=== PATIENT | female | born 1950 | race Caucasian/White ===

== ENCOUNTER 2016-07-26 05:30 | Inpatient (IN) | payer MEDICARE, OTHER ==
--- NOTE | ~2016-07-26 | CR72 ---
[facility] A Service of [facility] RADIOLOGY TEXT RESULTS PATIENT: HAYES JUDGE LOCATION: [facility] 301-01 : [birth year] UNIT #: [id number] AGE: [address]: Keshav Perla MD SEX: F ORDER DR: [id number] [facility] [address] [place], [place] [address] [id number] I MR#: [id number] Acc #: [id number] NAME: HAYES JUDGE : 1950 SEX: F STUDY DATE/TIME: 07/26/2016 5:32 [facility] RO[facility] 48158 STUDY DESCRIPTION: CR Chest Single View Portable Attending Physician: Keshav Perla M.D. Ordering Physician: Franklyn Mina D.O. Primary Care Physician: Maria Esther Saba A.P.R.N. MEDICAL IMAGING REPORT This report is preliminary unless electronic signature is present EXAM AP portable chest DATE 07/26/2016 HISTORY Shortness of breath and COPD for 3 days, worsening. COMPARISON AP portable chest 05/14/2016 FINDINGS Emphysematous changes are present. No acute airspace disease. Heart size is normal. No pleural effusion or pneumothorax. IMPRESSION Emphysematous changes. No acute chest findings. Dictated by... Elicia Henosn M.D. THIS IS AN ELECTRONICALLY VERIFIED REPORT Elicia Henson M.D. at 07/26/2016 10:26 PM SHEILA/carla TD: 07/26/2016 13:07 JOB #: [id number] MEDICAL IMAGING REPORT COPY
--- NOTE | ~2016-07-26 | EKG ---
PATIENT: HAYES JUDGE UNIT #: [id number] Ventricular Rate: 132 BPM Atrial Rate: 132 BPM P-R Interval: 128 ms QRS Duration: 68 ms Q-T Interval: 296 ms QTC Calculation(Bezet): 438 ms P Fisher: 78 degrees Calculated R Fisher: 49 degrees Calculated T Fisher: 89 degrees Diagnosis Line: Sinus tachycardia Diagnosis Line: Possible Left atrial enlargement Diagnosis Line: Anterior infarct , age undetermined Diagnosis Line: Abnormal ECG Diagnosis Line: When compared with ECG of 23-MAY-2016 06:41, Diagnosis Line: Nonspecific T wave abnormality now evident in Diagnosis Line: Inferior leads Diagnosis Line: Confirmed by IRVIN MARTINEZ MD ([id number]) on Diagnosis Line: 07/26/2016 11:28:23 AM INTERPRETING MD: MICHELLE SALAS
--- NOTE | ~2016-07-26 | DS ---
Unit #: [id number] #: [id number] Patient: HAYES JUDGE [id number] [address] [address] [id number] I MR#: [id number] NAME: HAYES JUDGE ROOM: 301 Age: 65 Sex: F Admission Date: 07/26/2016 : 1950 Discharge Date: 07/31/2016 Attending Physician: Keshav Perla M.D. Primary Care Physician: Maria Esther Saba A.P.R.N. DISCHARGE SUMMARY DISCHARGE DIAGNOSES 1. Acute exacerbation of chronic obstructive pulmonary disease. 2. Chronic respiratory failure on 2 L at home, saturations adequate now on room air daytime. 3. Acute bronchitis with Haemophilus influenzae. 4. Heterozygous alpha-1 antitrypsin disorder. 5. Coronary artery disease. 6. Anxiety and depression. 7. Hypertension with elevated blood pressure, possibly secondary to steroids. 8. Hyperlipidemia. 9. Elevated blood sugars, possibly steroid induced, but may have underlying diabetes as hemoglobin A1c have been elevated in the past. HOME MEDICATIONS Advair one puff twice a day; Spiriva once a day; albuterol as needed; Augmentin 875 mg b.i.d. x5 days; prednisone 40 mg for 5 days, 20 mg for 5 days, and then she will continue her 10 mg a day; Coreg 3.125 mg daily; Norvasc 10 mg daily, note this is an increase in dose; Zestril 10 mg a day; aspirin 81 mg a day. DIET Constant carb. ACTIVITY Doubt the patient will follow activity for now, continue oxygen 24 hours a day, note that ambulatory saturations on 2 L revealed maintenance of adequate saturations at 96%. FOLLOWUP Dr. Perla's nurse practitioner in 1 to 2 weeks, Dr. Perla in 6 to 8 weeks, Dr. Justin Zaldivar as scheduled or 4 to 6 weeks, Maria Esther Saba in 1 to 2 weeks for blood pressure check and evaluation for possible diabetes (please note, hemoglobin A1c during this admission is pending, hemoglobin A1c in 10/2015 was 7.1). DESCRIPTION OF HOSPITALIZATION The patient was admitted to the emergency room with shortness of breath and wheezing. She was treated in usual fashion with steroids, antibiotics, and nebulized bronchodilators. She had green mucopurulent sputum. She was treated with broad-spectrum antibiotics until sputum returned. It was Haemophilus influenzae, Beta-lactamase negative. She slowly improved and on the day of discharge, she was asking for discharge Unit #: [id number] #: [id number] Patient: HAYES JUDGE home. She will be tapered to her usual baseline dose of prednisone. In the office, we will consider adding Zithromax daily in hopes to prevent re-exacerbations. We will also consider formal allergy testing, if this is not complicated by daily prednisone. Her hospitalization was complicated by mild increase in blood pressure, which seems to persist. Therefore, clonidine was added on as needed basis. Her Norvasc was increased to 10 mg a day. She will continue her Zestril and I have suggested a blood pressure check in her primary provider's office. Blood sugars were elevated. She denies any history of diabetes and I have suggested she will be evaluated for possible diabetes as an outpatient in her primary provider's office as well. We will ask nutrition to give her guidance on proper diet, but she has been reluctant to follow that diet in the hospital, so I am pessimistic she will follow it at home. Dictated by... Keshav Perla M.D. RENNY/mónica TD: 08/01/2016 05:30 JOB #: [id number] CC: Justin Zaldivar M.D. DISCHARGE SUMMARY Page 1 of 1 X Keshav Perla MD X DISCHARGE SUMMARY
--- NOTE | ~2016-07-26 | A ---
[facility] Nutrition Therapy DATE: 07/31/16 Patient: HAYES JUDGE Physician: SUNNY Address: [address] Room/Bed: [address] [place] [address], Zip: [place] [address] Admit Date: 07/26/16 Date of : [birth year] Height: 5 0 Weight: 154 70.3 NUTRITIONAL ASSESSMENT: REASON: MD consult for diabetic diet education Admitting Dx: 65 y/o female admitted with COPD exacerbation PMH: COPD on 2L home O2, igmys-7-gillxmcrwnw disorder, CAD, HTN, HLD, depression Anthropometrics: Ht: 60", Wt: 154 lbs, BMI: 29 (overweight) Labs: Glucose 247, POC 228-336, BUN 27, ALT 59, A1C 7.4 Meds: Solu-medrol, Novolog (high SSI), Humulin Assessment: Chart reviewed, events noted. CXR negative. RD provided both verbal and written DM diet education including Type II DM, 1800 calorie 5-day sample meal plan and DM label reading tips handouts. Patient seems to have a pretty good diet at home, states she does not use salt and drinks a lot of water, eats 3 meals per day and watched carb intake. However she is on daily steroids which is likely contributing to her hyperglycemia and high A1C levels. RD discussed possible dietary modifications and losing 5-10% of body weight (7-14 lbs) with the patient who showed good understanding and motivation, stating she does not want to have to take insulin shots at home. Of note, RD previously educated on CC/HH diet on 08/14/14. See recs below. Dx: Altered nutrition related lab values r/t diet, long-term steroid use AEB A1C 7.4, glucose POC 228-336 md/dL, consult for diet education. Intervention: DM education, optimize insulin regimen Monitoring, Evaluation and Goals: 1. Modest weight loss 5-10% of body weight. 2. Understanding and implementation of DM diet. 3. Improvement in glucose and A1C. Recommendations: 1. Continue CC diet. RD provided both verbal and written diabetes education with contact number. Patient showed good understanding and motivation. 2. Optimize insulin regimen to promote adequate blood glucose control. Will fully assess at lenght of stay, please consult with any further questions/needs [facility] Nutrition Therapy DATE: 07/31/16 Patient: HAYES JUDGE Physician: SUNNY Address: [address] Room/Bed: [address] [place] [address], Zip: [place] [address] Admit Date: 07/26/16 Date of : [birth year] Height: 5 0 Weight: 154 70.3 Respectfully, Sherice Jordan RD, LD Food and Nutritional Services [facility] cc: client file
--- NOTE | ~2016-07-26 | CO ---
Unit #: [id number] #: [id number] Patient: HAYES JUDGE [id number] [address] [place], [place] [address] [id number] I MR#: [id number] NAME: HAYES JUDGE ROOM: 26049 Age: 65 Sex: F Admission Date: 07/26/2016 : 1950 Attending Physician: Keshav Perla M.D. Primary Care Physician: Maria Esther Saba A.P.R.N. Consultation Date: 07/26/2016 CONSULTATION REPORT CHIEF COMPLAINT Shortness of breath. HISTORY OF PRESENT ILLNESS This 65-year-old female with severe emphysema and chronic respiratory failure was feeling her normal self until approximately 2 days ago. She had increased wheezing, increased mucopurulent sputum that was green. She presented to the emergency room and, despite treatment, was still short of breath and required hospitalization. She had fairly intense wheezing but denied fever, chest pain or hemoptysis. PAST MEDICAL HISTORY 1. Chronic hypercapnic hypoxemic respiratory failure, on 2 liters. 2. Heterozygous byumu-9-jsctomfgnfw disorder. 3. Coronary artery disease. 4. Depression. 5. Hypertension. 6. Hyperlipidemia. MEDICATIONS AT HOME She takes Advair b.i.d., Spiriva once a day, albuterol as needed. She, also, is on Celexa, Zestril, Coreg, aspirin, Norvasc and Requip. ALLERGIES No known medical allergies. SOCIAL HISTORY She does not smoke, but she has been around intermittent secondhand smoke. 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 FAMILY HISTORY She is unaware of any definite familial lung disease. REVIEW OF SYSTEMS As above and no chest pain, palpitations, abdominal pain, melena, hematochezia. No swallowing difficulties. No hematuria, dysuria, focal weakness, paresthesias, leg pain, swelling, fever or chills. PHYSICAL EXAMINATION GENERAL: Examination reveals a patient who is in no acute distress. VITAL SIGNS: Afebrile. Pulse 103, respiratory rate 19, blood pressure 120/76. She is 5' tall, 156 pounds, BMI 30. HEENT: Pupils equal, round and reactive to light. Sclerae anicteric. Head atraumatic. Mucous membranes moist. Unit #: [id number] #: [id number] Patient: HAYES JUDGE NECK: Supple. No supraclavicular or cervical adenopathy appreciated. CHEST: Tight expiratory wheeze throughout all lung balbunea. No consolidation. CARDIAC: Examination reveals a regular rate and rhythm. No pathologic murmur, rub or gallop. ABDOMEN: Abdomen is soft, nontender. No hepatomegaly or rebound. EXTREMITIES: Extremities reveal no clubbing, cyanosis or edema. No calf tenderness. SKIN: Warm and dry without rash or diaphoresis. NEUROLOGIC: Grossly intact. No focal muscular or sensory deficits. DIAGNOSTIC STUDIES LABORATORY EXAMINATION: BUN is 19, creatinine 1, glucose mildly elevated at 178. BNP 46. Lactic acid 1.2. INR normal. Cardiac enzymes normal. White blood cell count 23.8, hemoglobin 15.6, platelet count 323. Do not see a urinalysis performed. Blood cultures performed and are pending. Sputum in the past was haemophilus influenza. IMAGING: Chest x-ray - No acute infiltrates. CARDIOVASCULAR: EKG - Sinus rhythm. Possible P pulmonale. IMPRESSION 1. Acute exacerbation of COPD. 2. Acute bronchitis. 3. Chronic respiratory failure. 4. Heterozygous alpha-1 phenotype. 5. Coronary artery disease. 6. Leukocytosis. No obvious pneumonia. 7. Hyperlipidemia, etc. PLAN Admission to the hospital. Antibiotics. Oxygen to maintain adequate saturations. Steroids, etc. I will check a urine for UA and C and S to evaluate her leukocytosis. Her leukocytosis may be stress related. Room air oxygenation needs will need to be checked at discharge per the patient. She got a letter from Medicare requiring recertification. Thank you very much for allowing me to participate in the care of this patient. Dictated by... Keshav Perla M.D. RENNY/bennett TD: 07/26/2016 12:20 JOB #: [id number] Unit #: [id number] #: [id number] Patient: HAYES JUDGE CONSULTATION REPORT X Keshav Perla MD X CONSULTATION REPORT
[2016-07-26 05:30] LABS: POC - CKMB 2.5 ng/mL (0.0-7.9); POC - TROPONIN <0.05 ng/mL (<=0.05)
[~2016-07-26 05:30] MED LIST: ACETAMINOPHEN PO; ACETAMINOPHEN650 M1 PO; ADVAIR 100-501 EACH IH; ADVAIR 250-501 EACH IH; ADVAIR 500-501 EACH IH; ADVAIR 500-501 EACH INH; ADVAIR 5001 DISK W/1 IH; ADVAIR 5001 DISK W/1 INH; ADVAIR 5001 DISK W/2 IH; ALB/IPRATROPIUM/1 E1 INH; ALBUTEROL 0.5ML INH; ALBUTEROL MININEB NEB; ALBUTEROL SULFATE INH; ALBUTEROL0.83 MG/ML IH; ALBUTEROL0.83 MG/ML NEB; ALBUTEROL17 GM INH; ALLERGY RELIEF10 M1 PO; ALLERGY RELIEF10 M2 PO; AMBIEN PO; ASPIRIN81 M1 PO; ASPIRIN81 M2 PO; ASPIRIN81 MG PO; ATROVENT NEB; AZITHROMYCIN250 MG PO; AZITHROMYCIN500 MG PO; BACTROBAN22 GM TP; BAYER CHEWABLE81 MG PO; BENZONATATE PO; BP PILL PO; CARDIZEM CD300 MG PO; CARVEDILOL3.125 MG PO; CELEXA PO; CELEXA10 MG PO; CELEXA20 M1 PO; CELEXA20 MG PO; CITALOPRAM HBR10 MG PO; CLARITIN10 M1 PO; COLACE PO; COMBIVENT MININEB IH; COMBIVENT MININEB NEB; COMBIVENT U/D3 M1 INH; COREG3.125 MG PO; DALIRESP500 MCG DOB; DALIRESP500 MCG PO; DELTASONE20 MG PO; DOXYCYCLINE HY100 M3 PO; DOXYCYCLINE PO; DUONEB 2.5-0.5 M3 ML NEB; ECOTRIN81 M1 PO; EFFIENT10 MG PO; FAMOTIDINE PO; FAMOTIDINE20 M1 PO; FLAX SEED OIL1000 M1 PO; FLAX SEED OIL1000 M2 PO; GABAPENTIN300 M2 PO; GLUCOTROL PO; HUMIBID-LA600 MG PO; HYDROCHLOROTHIA25 MG PO; IPRATR-ALBUTEROL3 ML IH; IPRATROPIUM BROM5 GM MC; IPRATROPIUM BROMIDE INH; IPRATROPIUM0.2 MG/ML NEB; K-DUR10 MEQ PO; KEFLEX500 M1 PO; LASIX PO; LASIX20 MG PO; LEVAQUIN PO; LEVAQUIN250 MG PO; LEVAQUIN750 M1 PO; LEVAQUIN750 MG PO; LISINOPRIL10 MG PO; LISINOPRIL5 MG PO; METHIMAZOLE10 MG PO; METHIMAZOLE5 MG PO; MILK OF MAGNESIA PO; MUCINEX PO; MUCINEX SINUS-1 EAC1 PO; NEURONTIN300 MG PO; NICODERM C1 PATCH .1 TD; NICOTINE TRANSD14 MG EXT; NICOTINE TRANSD21 MG EXT; NORVASC PO; PAIN RELIEF650 MG PO; PAIN RELIEVER325 M1 PO; PEPCID AC20 M2 PO; PEPCID PO; PLAVIX PO; POTASSIUM CHLO10 ME1 PO; POTASSIUM CITRA5 MEQ PO; POTASSIUM99 M1 PO; PRAVACHOL20 MG PO; PRAVASTATIN SOD20 MG PO; PREDNISONE INH; PREDNISONE PO; PREDNISONE10 MG PO; PREDNISONE10 MG/DOSE PO; PRINIVIL10 MG PO; PROAIR HFA8.5 GM INH; PROVENTIL INH0.5 ML INH; PROVENTIL INH0.5 ML NEB; PROVENTIL17 GM IH; PROVENTIL4 MG IH; QVAR7.3 G1 IH; QVAR7.3 G1 INH; REQUIP1 MG PO; SINGULAIR PO; SPIRIVA18 MCG INH; SYMBICORT INH; TAPAZOLE5 MG PO; TYLENOL PO; TYLENOL325 M1 PO; UROCIT-K5 MEQ PO; VENTOLIN5 MG/ML IH; VIBRAMYCIN100 M1 DOB; VIBRAMYCIN100 M1 PO; Z-PACK PO; ZESTRIL10 M1 PO; ZITHROMAX PO; ZITHROMAX1 G/PKT PO; ZOCOR PO
[2016-07-26 05:34] LABS: INR 0.9; PARTIAL THROMBOPLASTIN TIME 22.3 SECONDS (23.5-31.3); PROTHROMBIN TIME (PATIENT) 9.8 SECONDS (9.6-11.5)
[2016-07-26 05:48] LABS: BASOPHIL# 0.1 X10e3 (0-0.3); BASOPHIL% 0.4 % (0-2.5); EOSINOPHIL# 0.2 X10e3 (0-0.7); EOSINOPHIL% 0.7 % (0.0-7.0); HEMATOCRIT 47.7 % (35.0-45.0); HEMOGLOBIN 15.6 gm/dL (12.0-16.0); LYMPHOCYTE# 3.6 X10e3 (1.0-3.5); LYMPHOCYTE% 14.9 % (17.0-45.0); MEAN CELL VOLUME 92.9 FL (83-96); MEAN CORPUSCULAR HEMOGLOBIN 30.3 PG (28-34); MEAN CORPUSCULAR HGB CONC 32.6 g/dL (30-36); MEAN PLATELET VOLUME 8.2 FL (6.5-11.5); MONOCYTE# 1.2 X10e3 (0-1.0); MONOCYTE% 5.2 % (3.0-12.0); NEUTROPHIL# 18.7 X10e3 (1.5-7.1); NEUTROPHIL% 78.8 % (40-75); PLATELET COUNT 323 X10e3 (140-420); RED BLOOD COUNT 5.13 X10e (3.90-5.30); WHITE BLOOD COUNT 23.8 X10e3 (4.0-10.5)
[2016-07-26 06:03] LABS: ALBUMIN SERUM 4.1 g/dL (3.5-5.0); BILIRUBIN, DIRECT 0.1 mg/dL (0.0-0.2); BILIRUBIN,INDIRECT 0.5 mg/dL (0.0-0.9); BILIRUBIN,TOTAL 0.6 mg/dL (0.2-2.0); CALCIUM SERUM 9.3 mg/dL (8.4-10.2); GLOM FILT RATE Estimated 58.8 mL/min (>60); POTASSIUM 3.9 mmol/L (3.5-5.1); PROTEIN TOTAL SERUM 6.8 g/dL (6.0-8.3)
[2016-07-26 06:17] LABS: DIFF IND YES
[2016-07-26 06:39] LABS: POC - CKMB 3.9 ng/mL (0.0-7.9); POC - TROPONIN <0.05 ng/mL (<=0.05)
[2016-07-26 07:08] LABS: PLATELET ESTIMATE NORMAL (NORMAL); RBC NORMAL YES
[2016-07-27 09:50] LABS: URINE APPEARANCE CLEAR; URINE BILIRUBIN NEG (NEG); URINE BLOOD NEG (NEG); URINE COLOR YELLOW; URINE GLUCOSE 250 MG/DL (NEG); URINE KETONE NEG (NEG); URINE LEUKOCYTE ESTERASE NEG (NEG); URINE NITRATE NEG (NEG); URINE PH 6.5 (5-8); URINE PROTEIN 1+ (NEG); URINE SPECIFIC GRAVITY 1.026 (1.003-1.035); URINE UROBILINOGEN 0.2 MG/DL (NEG)
[2016-07-27 09:51] LABS: URINE BACTERIA AUWI NEG (NEGATIVE); URINE SQUAMOUS EPITHELIAL CELL OCC /[HPF]; UWBCS1 AUWI 0-2 (0-5)
[2016-07-27 10:00] LABS: URBCS1 AUWI 0-2 /[HPF] (0-2)
[2016-07-28 05:59] LABS: HEMATOCRIT 44.5 % (35.0-45.0); HEMOGLOBIN 14.4 gm/dL (12.0-16.0); MEAN CELL VOLUME 93.1 FL (83-96); MEAN CORPUSCULAR HEMOGLOBIN 30.1 PG (28-34); MEAN CORPUSCULAR HGB CONC 32.4 g/dL (30-36); MEAN PLATELET VOLUME 8.6 FL (6.5-11.5); RED BLOOD COUNT 4.79 X10e (3.90-5.30); RED CELL DISTRIBUTION WIDTH 14.6 % (11.0-15.5); WHITE BLOOD COUNT 20.6 X10e3 (4.0-10.5)
[2016-07-28 06:37] LABS: BLOOD UREA NITROGEN 25 mg/dL (9-23); BUN/CREATININE RATIO 27.77; CARBON DIOXIDE 28 mmol/L (22-31); CHLORIDE 99 mmol/L (100-111); CREATININE SERUM 0.9 mg/dL (0.6-1.4); GLOM FILT RATE Estimated ABOVE60 mL/min (>60); GLUCOSE FASTING 249 mg/dL (70-110); POTASSIUM 4.3 mmol/L (3.5-5.1); SODIUM 134 mmol/L (135-145)
[2016-07-29 06:11] LABS: BASOPHIL% 0.1 % (0-2.5); HEMATOCRIT 43.9 % (35.0-45.0); HEMOGLOBIN 14.3 gm/dL (12.0-16.0); LYMPHOCYTE# 0.4 X10e3 (1.0-3.5); LYMPHOCYTE% 2.7 % (17.0-45.0); MEAN CELL VOLUME 92.7 FL (83-96); MEAN CORPUSCULAR HEMOGLOBIN 30.1 PG (28-34); MEAN CORPUSCULAR HGB CONC 32.5 g/dL (30-36); MEAN PLATELET VOLUME 8.7 FL (6.5-11.5); MONOCYTE# 0.3 X10e3 (0-1.0); MONOCYTE% 1.8 % (3.0-12.0); NEUTROPHIL# 15.7 X10e3 (1.5-7.1); NEUTROPHIL% 95.4 % (40-75); PLATELET COUNT 295 X10e3 (140-420); RED BLOOD COUNT 4.73 X10e (3.90-5.30); RED CELL DISTRIBUTION WIDTH 14.5 % (11.0-15.5); WHITE BLOOD COUNT 16.4 X10e3 (4.0-10.5)
[2016-07-29 06:12] LABS: DIFF IND NO
[2016-07-29 06:48] LABS: ALBUMIN SERUM 3.2 g/dL (3.5-5.0); ALKALINE PHOSPHATASE 99 U/L (32-92); ALT (SGPT) 59 U/L (10-40); AST (SGOT) 30 U/L (10-42); BILIRUBIN,TOTAL 0.4 mg/dL (0.2-2.0); BLOOD UREA NITROGEN 27 mg/dL (9-23); BUN/CREATININE RATIO 33.75; CALCIUM SERUM 9.1 mg/dL (8.4-10.2); CARBON DIOXIDE 28 mmol/L (22-31); CHLORIDE 104 mmol/L (100-111); CREATININE SERUM 0.8 mg/dL (0.6-1.4); GLOM FILT RATE Estimated ABOVE60 mL/min (>60); GLUCOSE FASTING 247 mg/dL (70-110); POTASSIUM 4.3 mmol/L (3.5-5.1); SODIUM 141 mmol/L (135-145)
[2016-07-31 06:01] LABS: HEMATOCRIT 44.9 % (35.0-45.0); HEMOGLOBIN 14.7 gm/dL (12.0-16.0); MEAN CELL VOLUME 92.5 FL (83-96); MEAN CORPUSCULAR HEMOGLOBIN 30.3 PG (28-34); MEAN CORPUSCULAR HGB CONC 32.7 g/dL (30-36); MEAN PLATELET VOLUME 8.6 FL (6.5-11.5); RED BLOOD COUNT 4.85 X10e (3.90-5.30); RED CELL DISTRIBUTION WIDTH 14.8 % (11.0-15.5); WHITE BLOOD COUNT 14.3 X10e3 (4.0-10.5)
[2016-07-31] MEDS ORDERED: AUGMENTIN875 MG PO (14:31)
[2016-07-31] MEDS ORDERED: NORVASC10 MG PO (14:34)
[2016-07-31] MEDS ORDERED: ACETAMINOPHEN PO (15:08)
== END 2016-07-31 18:00 | disposition home or self-care (01) | DRG 191 ==
LOC: CED 05:30 → CEDOF 08:25 → C3A PCU 14:19
PROVIDERS: Emergency Medicine; Internal Medicine
PROC: 05H333Z Insertion of Infusion Device into Right Innominate Vein, Percutaneous Approach (ICD-10-PCS; principal; 2016-07-26)
PROC: B54MZZA Ultrasonography of Right Upper Extremity Veins, Guidance (ICD-10-PCS; 2016-07-26)
DX: J44.1 Chronic obstructive pulmonary disease with (acute) exacerbation (principal); J96.10 Chronic respiratory failure, unspecified whether with hypoxia or hypercapnia; E88.01 Alpha-1-antitrypsin deficiency; I10 Essential (primary) hypertension; J20.1 Acute bronchitis due to Hemophilus influenzae; J44.0 Chronic obstructive pulmonary disease with (acute) lower respiratory infection; I25.10 Atherosclerotic heart disease of native coronary artery without angina pectoris; F41.9 Anxiety disorder, unspecified; F32.9 Major depressive disorder, single episode, unspecified; E78.5 Hyperlipidemia, unspecified; R73.9 Hyperglycemia, unspecified; T38.0X5A Adverse effect of glucocorticoids and synthetic analogues, initial encounter; Z77.22 Contact with and (suspected) exposure to environmental tobacco smoke (acute) (chronic)
CPT/HCPCS: 36415; 71010; 80048; 80053; 80076; 81003; 82308; 82553; 82947; 83036; 83605; 83880; 84484; 85025; 85027; 85610; 85730; 87040; 87070; 87077; 87086; 87205; 93005; 94640; 94760; 96360; 99285; J0456; J0696; J1815; J2543; J2920; J3370

== ENCOUNTER 2016-08-06 05:19 | Inpatient (IN) | payer MEDICARE, OTHER ==
--- NOTE | ~2016-08-06 | CO ---
Unit #: [id number] #: [id number] Patient: HAYES JUDGE [id number] [address] [address] [id number] I MR#: [id number] NAME: HAYES JUDGE ROOM: [facility] Age: 65 Sex: F Admission Date: 08/06/2016 : 1950 Attending Physician: Keshav Perla M.D. Primary Care Physician: Maria Esther Saba A.P.R.N. Consultation Date: 08/08/2016 CONSULTATION REPORT REASON FOR CONSULTATION Dyspnea and chest pain. HISTORY OF PRESENT ILLNESS The patient is a 65-year-old female who has been seen by [facility] in the past for chest pain. She has had multiple hospital admissions for ppxiw-me-lilzbbe COPD exacerbations. The patient has had a cardiac cath on April 16, 2013 in which she had a stent to the RCA placed and in June of 2005, I believe, she had a 2D echocardiogram done which revealed an EF of 60%, mild MR, RVSP mildly elevated at 30% to 40% mmHg. Additional past medical history includes end-stage COPD on chronic O2, hypertension, hyperlipidemia, heterozygous alpha-1 antitrypsin disorder, reformed tobaccoism and anxiety and depression. The patient was recently discharged from this facility on July 31, 2016 for exacerbation of COPD and acute bronchitis with haemophilus influenza. Otherwise patient reports that since her discharge she has been becoming more short of breath. She re-presented to the emergency department with complaints of shortness of breath, cough fevers and body aches. She is found to be positive for influenza A and was admitted to the hospital. At that time her point of care troponin was less than 0.05 and her EKG showed sinus tachycardia with a rate of 115 beats per minute. The patient reports that she has chest pressure in the middle of her chest that does not radiate to her arms, neck, back or jaw. She denies any diaphoresis. She states that this pain is intermittent and is associated with coughing and taking a deep breath. PAST MEDICAL HISTORY 1. Cardiac catheterization on April 16, 2013 showed distal RCA with concentric 80% narrowing and 30% to 40% stenosis at the junction of the proximal 2/3rd and distal 1/3rd. She underwent stenting of the RCA. PDA branch and PLV branch normal. Left main normal. LAD mild plaquing in its proximal third with the distal 2/3rd of the vessel being normal. Circumflex mild plaquing in its proximal third. 2. Two-D echocardiogram from June 2015 shows an EF of 60% and RSVP of 30 to 40 mmHg. 3. Hypertension. 4. Hyperlipidemia. 5. Hyperthyroidism. 6. COPD/emphysema. 7. Chronic hypoxic hypercarbic respiratory failure on chronic O2. 8. Restless leg syndrome. Unit #: [id number] #: [id number] Patient: HAYES JUDGE 9. Anxiety. 10. Depression. PAST SURGICAL HISTORY 1. Appendectomy. 2. Cholecystectomy. 3. Hysterectomy. 4. Cardiac cath with stent. ALLERGIES No known allergies. HOME MEDICATIONS 1. Celexa 20 mg p.o. q.h.s. 2. Requip 1 mg p.o. q.h.s. 3. Advair 500/50 one puff inhalation b.i.d. 4. Lisinopril 10 mg p.o. daily. 5. Proventil one amp inhalation q.4 h. p.r.n. shortness of breath. 6. Spiriva 17 mcg one inhalation daily. 7. Norvasc 5 mg p.o. daily. 8. Aspirin 81 mg p.o. daily. 9. Acetaminophen 650 mg p.o. q.6 h. FAMILY HISTORY Patient states that her mother had a CVA and from sepsis in her early 70s. SOCIAL HISTORY Patent denies tobacco abuse and reports that she quit several years ago however she does have a history of greater than 30 years of smoking. She denies alcohol or illicit drug abuse. She denies any exposure to TB. She reports that she did have the flu and pneumonia vaccines. She reports that she lives with a roommate. REVIEW OF SYSTEMS A 10-point review of systems has been done and is considered otherwise negative except as indicated in the HPI. PHYSICAL EXAMINATION GENERAL: Patient is awake, alert, in no acute distress. VITAL SIGNS: Her vital signs are temperature 97.7, heart rate 107, respirations 21, blood pressure 146/81. She is oxygenating 98%. HEENT: Head is atraumatic and normocephalic. Pupils equal, round and reactive. Extraocular movements are intact. No discharged from ears or nares. NECK: Neck is supple. Trachea is midline. CHEST: Lungs (1) wheezing and rhonchi. CARDIOVASCULAR: S1 and S2. She is tachycardic. No murmurs, gallops or rubs appreciated. ABDOMEN: Soft, nontender, nondistended. Bowel sounds are positive in all four quadrants. SKIN: Appears to be warm, dry and intact without unusual rashes or lesions. She does have some scratches on her legs. EXTREMITIES: No clubbing or cyanosis. Patient has mild bilateral lower extremity edema. NEUROLOGIC: Patient is alert and oriented x3 to 4. She is pleasant and conversant. No focal deficits. Cranial nerves II-XII appear to be intact. Unit #: [id number] #: [id number] Patient: HAYES JUDGE DIAGNOSTIC STUDIES CARDIOVASCULAR: EKG shows normal sinus rhythm. LABORATORY: Point of care troponin was less than 0.05 on admission. IMAGING: Chest x-ray shows atelectasis or infiltrate in the left lower lobe and atelectasis in the right lower lobe. ASSESSMENT 1. Influenza A. 2. Acute chronic obstructive pulmonary disease exacerbation with shortness of air. 3. Tyklw-lf-jzmciip hypoxic hypercarbic respiratory failure on chronic oxygen. 4. Chest pain associated with cough and dyspnea. 5. Coronary artery disease with a history of stent to the right coronary artery in 2012. 6. Hypertension. 7. Hyperlipidemia. 8. Hyperglycemia. 9. Leukocytosis, possibly secondary to flu or steroids. PLAN I will order a 2D echocardiogram or have one placed on the chart if one has been done recently. Will trend cardiac enzymes and track an EKG. Will check BNP, magnesium, lipid panel and TSH in the morning. The patient's chest pain is associated with cough and dyspnea. Will monitor. I will have Dr. Kidd (2) . Will continue the patient in aspirin 81 mg p.o. daily. No beta blockers secondary to respiratory status. Her Norvasc has been held per the admitting team. Will give patient Lasix 40 mg IV x1 now. Dictated by... Berta Soto A.P.R.N. for Ashvin Kidd M.D. AM/cf TD: 08/08/2016 15:53 JOB #: [id number] CONSULTATION REPORT Page 1 of 1 X Berta Soto APRN CONSULTATION REPORT
--- NOTE | ~2016-08-06 | CR72 ---
[facility] A Service of [facility] RADIOLOGY TEXT RESULTS PATIENT: HAYES JUDGE LOCATION: [place] [address] : [birth year] UNIT #: [id number] AGE: [address]: Keshav Perla MD SEX: F ORDER DR: [id number] [facility] [address] [place], [place] [address] [id number] I MR#: [id number] Acc #: [id number] NAME: HAYES JUDGE : 1950 SEX: F STUDY DATE/TIME: 08/06/2016 15:42 UNIT: [facility] ROOM: [facility] STUDY DESCRIPTION: CR Chest Single View Portable Attending Physician: Keshav Perla M.D. Ordering Physician: Linda Fry D.O. Primary Care Physician: Maria Esther Saba A.P.R.N. MEDICAL IMAGING REPORT This report is preliminary unless electronic signature is present EXAM Portable chest HISTORY Shortness of air for 2 days. FINDINGS Mild patchy probable subsegmental atelectasis or infiltrate in the retrocardiac left lower lobe and minimal atelectasis in the right base are new compared to earlier today. Mild hyperinflation of both lungs. Cardiac and mediastinal contours are normal. Dictated by... Jose G Henriquez M.D. THIS IS AN ELECTRONICALLY VERIFIED REPORT Jose G Henriquez M.D. at 08/07/2016 3:04 PM SUDARSHAN/delia TD: 08/07/2016 09:12 JOB #: [id number] MEDICAL IMAGING REPORT Page 1 of 1 COPY
--- NOTE | ~2016-08-06 | HP ---
Unit #: [id number] #: [id number] Patient: HAYES JUDGE [id number] [address] [address] [id number] I MR#: [id number] NAME: HAYES JUDGE ROOM: 55 Age: 65 Sex: F Admission Date: 08/06/2016 : 1950 Attending Physician: Keshav Perla M.D. Primary Care Physician: Maria Esther Saba A.P.R.N. HISTORY AND PHYSICAL CHIEF COMPLAINT Shortness of breath. HISTORY OF PRESENT ILLNESS This is a 65-year-old female with a known history of severe COPD who was just in the hospital for an acute exacerbation. She re-presented to the ER with shortness of breath, cough, fevers, and body aches. She was found to be positive for influenza A and was admitted to the hospital. Currently, patient is doing a little bit better. She was on BiPAP through the night but is off now and doing much better. PAST MEDICAL HISTORY 1. Chronic obstructive pulmonary disease, on chronic O2. 2. Heterozygous for alpha-1 antitrypsin disorder. 3. Coronary artery disease. 4. Hypertension. 5. Depression. 6. Dyslipidemia. 7. Restless leg syndrome. 8. Appendectomy. 9. Cholecystectomy. 10. Hysterectomy. 11. Percutaneous coronary intervention with stents. PAST SURGICAL HISTORY None. ALLERGIES None. MEDICATIONS 1. Celexa. 2. Requip. 3. Advair. 4. Lisinopril. 5. Proventil. 6. Spiriva. 7. Norvasc. 8. Aspirin. 9. Tylenol. SOCIAL HISTORY The patient denies tobacco abuse right now. She quit several years ago. She had a greater than 50 pack-year history. She denies alcohol or Unit #: [id number] #: [id number] Patient: HAYES JUDGE illicit drug use. She denies any exposure to TB. She states she has had the flu and the pneumonia vaccines. FAMILY HISTORY Noncontributory. REVIEW OF SYSTEMS A complete review of systems was performed and pertinent positives are included in the Chief Complaint. PHYSICAL EXAMINATION VITAL SIGNS: Stable. She is afebrile. GENERAL: Patient is alert and oriented x3 and appears in no acute distress. HEENT: Eyes PERRLA. Extraocular muscles intact. Sclerae are clear. Nose patent and symmetric without rhinitis. Throat without erythema or exudate. Tongue size normal. NECK: Without JVD, carotid bruit, or thyromegaly. LYMPH NOTES: Without submandibular, anterior, cervical, or supraclavicular adenopathy. HEART: Regular rate and rhythm without murmur appreciated. No thrills palpated. LUNGS: Markedly diminished bilaterally with faint expiratory wheezes throughout. There is no egophony or dullness to percussion. No use of accessory muscles at this time. ABDOMEN: Soft and nontender. EXTREMITIES: Without clubbing, cyanosis, or edema. SKIN: Warm, dry, and intact. DIAGNOSTIC STUDIES LABORATORY: Reviewed. IMAGING: Chest x-ray none. IMPRESSION 1. Acute exacerbation of chronic obstructive pulmonary disease secondary to influenza A. 2. Alpha-1 antitrypsin carrier. 3. Coronary artery disease. 4. Hypertension. 5. Dyslipidemia. 6. Restless leg syndrome. 7. Depression. 8. Leukocytosis secondary to steroids and flu. RECOMMENDATIONS 1. Will start Tamiflu. 2. Bronchodilators. 3. Steroids. 4. Insulin. 5. Proton pump inhibitor. Dictated by Emmanuelle Russell Unit #: [id number] #: [id number] Patient: HAYES JUDGE TD: 08/06/2016 19:19 JOB #: [id number] HISTORY AND PHYSICAL Page 1 of 1 X Linda Fry DO X HISTORY AND PHYSICAL
--- NOTE | ~2016-08-06 | EKG ---
PATIENT: HAYES JUDGE UNIT #: [id number] Ventricular Rate: 115 BPM Atrial Rate: 115 BPM P-R Interval: 126 ms QRS Duration: 72 ms Q-T Interval: 334 ms QTC Calculation(Bezet): 462 ms P Grifton: 77 degrees Calculated R Grifton: 61 degrees Calculated T Grifton: 56 degrees Diagnosis Line: Sinus tachycardia Diagnosis Line: Right atrial enlargement Diagnosis Line: Nonspecific T wave abnormality Diagnosis Line: Abnormal ECG Diagnosis Line: When compared with ECG of 26-JUL-2016 05:07, Diagnosis Line: No significant change was found Diagnosis Line: Confirmed by ELOISA GUDINO MD ([id number]) on 08/07/2016 Diagnosis Line: 10:57:52 PM INTERPRETING MD: TERESE SALAS
--- NOTE | ~2016-08-06 | EKG ---
PATIENT: HAYES JUDGE UNIT #: [id number] Ventricular Rate: 106 BPM Atrial Rate: 106 BPM P-R Interval: 122 ms QRS Duration: 68 ms Q-T Interval: 310 ms QTC Calculation(Bezet): 411 ms P [place]: 81 degrees Calculated R [place]: 52 degrees Calculated T [place]: -87 degrees Diagnosis Line: Sinus tachycardia Diagnosis Line: Nonspecific T wave abnormality Diagnosis Line: Abnormal ECG Diagnosis Line: When compared with ECG of 06-AUG-2016 05:49, Diagnosis Line: No significant change was found Diagnosis Line: Confirmed by ELOISA GUDINO MD ([id number]) on 08/09/2016 Diagnosis Line: 9:15:41 PM INTERPRETING MD: TERESE SALAS
--- NOTE | ~2016-08-06 | CR72 ---
[facility] A Service of [facility] RADIOLOGY TEXT RESULTS PATIENT: HAYES JUDGE LOCATION: [place] [address] : 48 UNIT #: [id number] AGE: [address]: Keshav Perla MD SEX: F ORDER DR: [id number] [facility] [address] [facility]. [place], [place] [address] [id number] I MR#: [id number] #: [id number] NAME: HAYES JUDGE : 1950 SEX: F STUDY DATE/TIME: 08/06/2016 5:29 UNIT: [facility] ROOM: [facility] STUDY DESCRIPTION: CR Chest Single View Portable Attending Physician: Keshav Perla M.D. Ordering Physician: Therese Myers M.D. Primary Care Physician: Maria Esther Saba A.P.R.N. MEDICAL IMAGING REPORT This report is preliminary unless electronic signature is present EXAM Frontal chest 08/06/2016 INDICATIONS Shortness of air in a 65-year-old female, cough, pneumonia, symptoms began yesterday. TECHNIQUE Frontal chest COMPARISON 07/26/2016 FINDINGS Cardiac silhouette is within normal limits for technique. The vascularity is unremarkable. There is some probable atelectasis or mild scarring in the lower lung zones bilaterally but no dense consolidation is present. No distinct effusion. Mild eventration of both hemidiaphragms. IMPRESSION Probable faint atelectasis or scarring in the lung bases. Otherwise negative frontal chest. No significant change Dictated by... Clay Granados M.D. THIS IS AN ELECTRONICALLY VERIFIED REPORT Clay Granados M.D. at 08/06/2016 9:57 PM ZENIA/claudia TD: 08/06/2016 15:36 JOB #: [id number] [facility] A Service of [facility] RADIOLOGY TEXT RESULTS PATIENT: HAYES JUDGE LOCATION: [place] [address] : 48 UNIT #: [id number] AGE: [address]: Keshav Perla MD SEX: F ORDER DR: MEDICAL IMAGING REPORT Page 1 of 1 COPY
--- NOTE | ~2016-08-06 | EKG ---
PATIENT: HAYES JUDGE UNIT #: [id number] Ventricular Rate: 106 BPM Atrial Rate: 106 BPM P-R Interval: 122 ms QRS Duration: 68 ms Q-T Interval: 310 ms QTC Calculation(Bezet): 411 ms P [place]: 81 degrees Calculated R [place]: 52 degrees Calculated T [place]: -87 degrees Diagnosis Line: Sinus tachycardia Diagnosis Line: Right atrial enlargement Nonspecific ST Diagnosis Line: abnormality Diagnosis Line: Abnormal ECG Diagnosis Line: When compared with ECG of 06-AUG-2016 05:49, Diagnosis Line: No significant change was found Diagnosis Line: Reconfirmed by ELOISA GUDINO MD ([id number]) on Diagnosis Line: 08/09/2016 9:16:08 PM INTERPRETING MD: TERESE SALAS
--- NOTE | ~2016-08-06 | DS ---
Unit #: [id number] #: [id number] Patient: HAYES JUDGE [id number] [address] [place], [place] [address] [id number] I MR#: [id number] NAME: HAYES JUDGE ROOM: 55 Age: 65 Sex: F Admission Date: 08/06/2016 : 1950 Discharge Date: 08/14/2016 Attending Physician: Keshav Perla M.D. Primary Care Physician: Maria Esther Saba A.P.R.N. DISCHARGE SUMMARY DISCHARGE DIAGNOSES 1. Chronic obstructive pulmonary disease with exacerbation. 2. Influenza A status post Tamiflu. 3. Methicillin-resistant Staphylococcus aureus tracheal bronchitis. 4. Chronic respiratory failure, on 2 L. 5. Acute respiratory failure, now requiring 5 L, will evaluate need for correct litre flow at home. 6. Coronary artery disease, status post percutaneous coronary intervention in the past. 7. Heterozygous alpha-1 antitrypsin disorder. 8. Hypertension. 9. Hyperlipidemia. 10. Anxiety and depression. 11. Some degree of steroid-induced hyperglycemia with elevated hemoglobin A1c consider diabetes. DISCHARGE MEDICATIONS Prednisone 40 mg tapered to her chronic home dose, Bactrim DS one tablet b.i.d. for 4 more days, hydrochlorothiazide 12.5 mg a day, Lipitor 40 mg at night, Requip 1 mg at bedtime, Norvasc 5 mg a day, Zestril 20 mg b.i.d., aspirin 81 mg a day, albuterol mini nebs q.i.d. p.r.n., Advair 500/50 one puff b.i.d., Tylenol p.r.n., Spiriva 1 capsule inhaled daily, Celexa 20 mg at bedtime. FOLLOWUP 1. Follow up with Ms. Saba in 1 to 2 weeks for possible diabetes management of other medical problems. 2. Follow up with Dr. Zaldivar as scheduled. 3. Follow up in our office with our nurse practitioner in 1 to 2 weeks in my office and with me after that. ACTIVITY Oxygen 24 hours a day. DIET As tolerated, constant carb suggested. She has been educated on that in the past. PROCEDURES PERFORMED Echocardiogram and ejection fraction 55% to 60%. Mild degree of diastolic dysfunction. No evidence of pulmonary hypertension. Unit #: [id number] #: [id number] Patient: HAYES JUDGE DESCRIPTION OF HOSPITALIZATION The patient was admitted through the emergency room by my partner, Dr. Fry. She was flu screen positive, treated with Tamiflu. She was treated in the usual fashion for tracheal bronchitis and COPD exacerbation. In the past, she had Haemophilus influenzae in her sputum and that was treated however she failed to improve. Sputum culture at that time, revealed MRSA. She initially was treated with vancomycin transition to Bactrim. She was very weak initially, but overtime she became much stronger and was able to perform all activities of daily living. She was eating well at the time of discharge. She actually had been stable on oral steroids and oral antibiotics over the weekend and on Sunday, she was doing well and was discharged in markedly improved condition. She was still on 5 L. Room air oxygenation will be checked, it to document O2 need. She tells me insurance is requiring this. She then will be titrated to the oxygen level needed to maintain adequate saturations. Overall discharged in markedly improved condition. Dictated by... Romana Rivers/mónica TD: 08/14/2016 23:18 JOB #: [id number] CC: Maria Esther Saba A.P.R.N. DISCHARGE SUMMARY Page 1 of 1 X Keshav Perla MD X DISCHARGE SUMMARY
--- NOTE | ~2016-08-06 | US85 ---
[facility] A Service of [facility] RADIOLOGY TEXT RESULTS PATIENT: HAYES JUDGE LOCATION: [facility] 557-01 : 48 UNIT #: [id number] AGE: [address]: Keshav Perla MD SEX: F ORDER DR: [id number] [facility] [address] [facility]. [place], [place] [address] [id number] I MR#: [id number] #: [id number] NAME: HAYES JUDGE : 1950 SEX: F STUDY DATE/TIME: 08/11/2016 12:50 UNIT: B ROOM: [facility] STUDY DESCRIPTION: LE Veins Unilat or Ltd Stdy Attending Physician: Keshav Perla M.D. Ordering Physician: Keshav Perla M.D. Primary Care Physician: Maria Esther Saba A.P.R.N. MEDICAL IMAGING REPORT This report is preliminary unless electronic signature is present EXAM Left upper extremity venous Doppler INDICATION Left upper extremity swelling for 1 day. FINDINGS Grayscale color Doppler and spectral Doppler waveform analysis was performed through the left upper extremity. FINDINGS The patient's left internal jugular, subclavian, axillary, brachial and basilic veins are all patent and compressible. This patient is noted to have some occlusive thrombus within the left cephalic vein at the level of the antecubital fossa. There also appears to be some edema in the left arm. IMPRESSION The study is positive for SVT involving the left cephalic vein at the antecubital fossa. No DVT is seen Dictated by... Svitlana Love M.D. THIS IS AN ELECTRONICALLY VERIFIED REPORT Svitlana Love M.D. at 08/13/2016 12:25 PM AFF/ea TD: 08/11/2016 21:52 [facility] A Service of [facility] RADIOLOGY TEXT RESULTS PATIENT: HAYES JUDGE LOCATION: [facility] 557-01 : [birth year] UNIT #: [id number] AGE: [address]: Keshav Perla MD SEX: F ORDER DR: JOB #: [id number] MEDICAL IMAGING REPORT Page 1 of 1 COPY
[~2016-08-06 05:19] MED LIST changes: +AUGMENTIN875 MG PO; +NORVASC10 MG PO
[2016-08-06] MEDS ORDERED: CELEXA20 MG PO (05:36)
[2016-08-06] MEDS ORDERED: REQUIP1 MG PO (05:36)
[2016-08-06] MEDS ORDERED: LISINOPRIL20 MG PO (05:37)
[2016-08-06] MEDS ORDERED: ALBUTEROL 0.5ML INH (05:37)
[2016-08-06] MEDS ORDERED: ADVAIR 500-501 EACH INH (05:37)
[2016-08-06] MEDS ORDERED: ASPIRIN81 M2 PO (05:38)
[2016-08-06] MEDS ORDERED: SPIRIVA18 MCG INH (05:38)
[2016-08-06] MEDS ORDERED: ACETAMINOPHEN PO (05:38)
[2016-08-06] MEDS ORDERED: NORVASC PO (05:38)
[2016-08-06 05:46] LABS: BASOPHIL% 0.1 % (0-2.5); EOSINOPHIL# 0.1 X10e3 (0-0.7); EOSINOPHIL% 0.3 % (0.0-7.0); HEMATOCRIT 45.6 % (35.0-45.0); LYMPHOCYTE# 1.7 X10e3 (1.0-3.5); LYMPHOCYTE% 8.7 % (17.0-45.0); MEAN CORPUSCULAR HEMOGLOBIN 30.5 PG (28-34); MEAN CORPUSCULAR HGB CONC 32.8 g/dL (30-36); MEAN PLATELET VOLUME 8.8 FL (6.5-11.5); MONOCYTE# 0.9 X10e3 (0-1.0); MONOCYTE% 4.4 % (3.0-12.0); NEUTROPHIL# 16.7 X10e3 (1.5-7.1); NEUTROPHIL% 86.5 % (40-75); PLATELET COUNT 221 X10e3 (140-420); RED BLOOD COUNT 4.91 X10e (3.90-5.30); RED CELL DISTRIBUTION WIDTH 15.2 % (11.0-15.5); WHITE BLOOD COUNT 19.3 X10e3 (4.0-10.5)
[2016-08-06 05:50] LABS: DIFF IND YES
[2016-08-06 05:51] LABS: POC - CKMB 1.1 ng/mL (0.0-7.9); POC - TROPONIN <0.05 ng/mL (<=0.05)
[2016-08-06 06:17] LABS: INFLUENZA A POS (NEG); INFLUENZA B NEG (NEG)
[2016-08-06 06:17] LABS: ALBUMIN SERUM 3.6 g/dL (3.5-5.0); BILIRUBIN, DIRECT 0.1 mg/dL (0.0-0.2); BILIRUBIN,INDIRECT 0.2 mg/dL (0.0-0.9); BILIRUBIN,TOTAL 0.3 mg/dL (0.2-2.0); BUN/CREATININE RATIO 15.45; CALCIUM SERUM 8.8 mg/dL (8.4-10.2); CREATININE SERUM 1.1 mg/dL (0.6-1.4); GLOM FILT RATE Estimated 51.9 mL/min (>60); POTASSIUM 3.9 mmol/L (3.5-5.1); PROTEIN TOTAL SERUM 6.6 g/dL (6.0-8.3)
[2016-08-06 06:24] LABS: ANISOCYTOSIS SL; PLATELET ESTIMATE NORMAL (NORMAL)
[2016-08-06 06:39] LABS: ARTERIAL BLD GAS O2 SATURATION 99.8 % (90.0-100.0); ARTERIAL BLOOD GAS CARBOXY HB 0.7 %sat (0.0-9.0); ARTERIAL BLOOD GAS MET HB 0.5 %sat (0.0-2.0); ARTERIAL BLOOD GAS PCO2 55.6 mmHg (35.0-45.0)
[2016-08-06 06:40] LABS: ARTERIAL BLOOD GAS ALLEN TEST NORMAL; ARTERIAL BLOOD GAS ART SITE LEFT RADIAL; ARTERIAL BLOOD GAS DELIVERY BIPAP; ARTERIAL DRAW? YES
[2016-08-08 17:01] LABS: CK TOTAL 19 IU/L (26-140)
[2016-08-08 21:56] LABS: CK TOTAL 26 IU/L (26-140)
[2016-08-09 07:22] LABS: CALCIUM SERUM 8.8 mg/dL (8.4-10.2); CREATININE SERUM 0.8 mg/dL (0.6-1.4); GLOM FILT RATE Estimated 76.4 mL/min (>60); MAGNESIUM 1.9 mg/dL (1.6-3.0); POTASSIUM 3.8 mmol/L (3.5-5.1)
[2016-08-11 06:17] LABS: HEMATOCRIT 39.6 % (35.0-45.0); HEMOGLOBIN 13.1 gm/dL (12.0-16.0); MEAN CELL VOLUME 92.3 FL (83-96); MEAN CORPUSCULAR HEMOGLOBIN 30.4 PG (28-34); RED BLOOD COUNT 4.29 X10e (3.90-5.30); RED CELL DISTRIBUTION WIDTH 14.9 % (11.0-15.5); WHITE BLOOD COUNT 13.9 X10e3 (4.0-10.5)
[2016-08-11 06:40] LABS: BUN/CREATININE RATIO 34.28; CALCIUM SERUM 8.6 mg/dL (8.4-10.2); CREATININE SERUM 0.7 mg/dL (0.6-1.4); GLOM FILT RATE Estimated 89.7 mL/min (>60); POTASSIUM 4.1 mmol/L (3.5-5.1)
[2016-08-12 06:50] LABS: CALCIUM SERUM 8.9 mg/dL (8.4-10.2); CREATININE SERUM 0.8 mg/dL (0.6-1.4); GLOM FILT RATE Estimated 76.4 mL/min (>60); POTASSIUM 4.3 mmol/L (3.5-5.1)
[2016-08-13 08:21] LABS: BUN/CREATININE RATIO 33.75; CALCIUM SERUM 9.3 mg/dL (8.4-10.2); CREATININE SERUM 0.8 mg/dL (0.6-1.4); GLOM FILT RATE Estimated 76.4 mL/min (>60); MAGNESIUM 1.8 mg/dL (1.6-3.0); POTASSIUM 4.9 mmol/L (3.5-5.1)
[2016-08-14 07:14] LABS: BUN/CREATININE RATIO 36.25; CREATININE SERUM 0.8 mg/dL (0.6-1.4); GLOM FILT RATE Estimated 76.4 mL/min (>60); MAGNESIUM 1.9 mg/dL (1.6-3.0); POTASSIUM 4.4 mmol/L (3.5-5.1)
[2016-08-14] MEDS ORDERED: DELTASONE20 MG PO (11:54)
[2016-08-14] MEDS ORDERED: HYDROCHLOROTHIA25 MG PO (12:00)
[2016-08-14] MEDS ORDERED: BACTRIM DS TABL1 TA2 PO (13:56)
[2016-08-14] MEDS ORDERED: LIPITOR40 MG PO (13:58)
== END 2016-08-14 17:31 | disposition home or self-care (01) | DRG 189 ==
LOC: CED 05:19 → CEDOF 07:13 → C5B 09:46
PROVIDERS: Emergency Medicine; Internal Medicine; Nurse Practitioner
PROC: B24BZZZ Ultrasonography of Heart with Aorta (ICD-10-PCS; principal; 2016-08-09)
DX: J96.21 Acute and chronic respiratory failure with hypoxia (principal); E88.01 Alpha-1-antitrypsin deficiency; Z99.81 Dependence on supplemental oxygen; J44.1 Chronic obstructive pulmonary disease with (acute) exacerbation; J96.22 Acute and chronic respiratory failure with hypercapnia; J10.1 Influenza due to other identified influenza virus with other respiratory manifestations; Z87.891 Personal history of nicotine dependence; B95.62 Methicillin resistant Staphylococcus aureus infection as the cause of diseases classified elsewhere; I25.10 Atherosclerotic heart disease of native coronary artery without angina pectoris; Z95.5 Presence of coronary angioplasty implant and graft; I10 Essential (primary) hypertension; F41.9 Anxiety disorder, unspecified; F32.9 Major depressive disorder, single episode, unspecified; R73.9 Hyperglycemia, unspecified; T38.0X5A Adverse effect of glucocorticoids and synthetic analogues, initial encounter; Y92.9 Unspecified place or not applicable; Z90.49 Acquired absence of other specified parts of digestive tract; Z90.710 Acquired absence of both cervix and uterus; Z79.82 Long term (current) use of aspirin; G25.81 Restless legs syndrome; Z82.3 Family history of stroke
CPT/HCPCS: 36600; 71010; 80048; 80061; 80076; 82550; 82553; 82803; 82947; 83036; 83605; 83735; 83880; 84443; 84484; 85025; 85027; 87040; 87070; 87077; 87186; 87205; 87804; 93005; 93306; 93971; 94640; 94660; 94760; 94761; 96374; 99291; J1815; J1940; J2543; J2920; J2930; J3260; J3370; J3475

== ENCOUNTER 2016-10-04 01:59 | Inpatient (IN) | payer MEDICARE, OTHER ==
--- NOTE | ~2016-10-04 | CO ---
Unit #: [id number] #: [id number] Patient: HAYES JUDGE [id number] [address] [place], [place] [address] [id number] I MR#: [id number] NAME: HAYES JUDGE ROOM: 301 Age: 66 Sex: F Admission Date: 10/04/2016 : 1950 Attending Physician: Keshav Perla M.D. Primary Care Physician: Maria Esther Saba A.P.R.N. Consultation Date: 10/04/2016 CONSULTATION REPORT DICTATED FOR [facility] Cardiology, Dr. Zaldivar. REASON FOR CONSULTATION Chest pain. HISTORY OF PRESENT ILLNESS The patient is a 66-year-old white female, who has a history of coronary artery disease with a stent in the mid RCA in 2012, severe COPD depended upon 2 L of oxygen, hypertension, hyperlipidemia, hyperthyroidism, anxiety, depression, chronic respiratory failure. The patient presented to the [facility] ED with complaints of shortness of breath that had been increasing over the past couple of days. She also described some chest pressure in the middle of her chest when she would get up and walk as if someone was sitting on her. She states that this chest pressure was alleviated by rest and actually she felt better with her breathing when she lies down. The patient denies any nausea, vomiting, diarrhea, fevers, chills, palpitations, syncope, near syncope. The patient does complain that she was a little lightheaded at times, but never had any issues with passing out. She also states that she sleeps fairly flat at night with just using one pillow in her bed. The patient had a cardiac cath in [address] Pena that showed an 80% stenosis to the mid RCA where he placed a stent. All other coronaries were normal at that time. Echo in 2013 showed an EF of 55%, mildly dilated right ventricle. The patient has not had any kind of cardiac workup since that time as she has not had any issues with chest pain. The patient is very limited with her mobility due to her COPD and she is oxygen dependent. PAST MEDICAL HISTORY 1. CAD with PCI and stent 2 years ago to the mid RCA. 2. COPD, O2-dependent. 3. Hypertension. 4. Hyperlipidemia. 5. Chronic respiratory failure. 6. Anxiety. 7. Depression. 8. Hyperthyroidism. 9. Fibroid tumor. PAST SURGICAL HISTORY Unit #: [id number] #: [id number] Patient: HAYES JUDGE Includes cholecystectomy, total abdominal hysterectomy. SOCIAL HISTORY The patient walks around her home occasionally; however, when she goes to the grocery store, she walks and then gets on a motorized cart where she rides around the store to do her shopping. The patient is a former smoker of one pack per day for 17 years, but quit one year ago. She denies any alcohol abuse or any other drug abuse. FAMILY HISTORY Mother had a stroke, but there is no coronary history known to the patient. ALLERGIES No known medical allergies. HOME MEDICATIONS Include Advair twice a day, Spiriva once a day, albuterol as needed, prednisone 10 mg daily, Celexa, Requip, lisinopril, Norvasc, aspirin, Tylenol, hydrochlorothiazide, Lipitor. REVIEW OF SYSTEMS See HPI. PHYSICAL EXAMINATION GENERAL: This is a 66-year-old white female, who is alert and oriented x3, in no apparent distress. VITAL SIGNS: Blood pressure 137/93, temp 98, pulse 88, respirations 20. HEENT: Pupils are equal, round, and reactive. Oral mucosa is moist. NECK: No JVD. No thyromegaly. No lymphadenopathy. No carotid bruits. HEART: S1 and S2. No S3 or S4. Tachy rate. No murmurs, no rubs, no gallops. LUNGS: Significant expiratory wheezing noted on exam and very diminished breath sounds. ABDOMEN: Soft. Bowel sounds positive. Nontender, nondistended. EXTREMITIES: No swelling. NEUROLOGICAL: No neuro deficits noted. LABORATORY STUDIES LABORATORY RESULTS: Recent laboratory studies include white count of 13.8, hemoglobin 13.4, hematocrit 41.6, platelets 336. Troponin less than 0.05. Sodium 140, potassium 3.7, chloride 105, CO2 of 29, glucose 170, BUN 15, creatinine 0.8. BNP 20. IMAGING STUDIES: Chest x-ray showed no acute findings. IMPRESSION 1. Chest pain. 2. Chronic obstructive pulmonary disease exacerbation. 3. Hypertension. 4. Hyperlipidemia. 5. History of stent to the RCA in 2012. PLAN The patient's symptoms are likely related to her chronic obstructive pulmonary disease exacerbation as she has had one negative troponin and her EKG does not show anything acute. Also with her having had a catheterization 4 years ago, that showed normal coronaries other than the one that was stented at that time. The patient follows with Dr. Zaldivar in Unit #: [id number] #: [id number] Patient: HAYES JUDGE the office. I discussed the case with Dr. Zaldivar, who said that it would be ideal to check another troponin as only one has been checked and potentially check an EKG in the morning. Due to the patient's poor pulmonary status with a wheezing, we would plan to defer any stress testing at this time until the patient has recovered some and then can be done as an outpatient. Further recommendations pending lab work results. We will follow along. Thank you for the consult. Dictated by... BRADEN Barajas TD: 10/05/2016 04:03 JOB #: [id number] CC: Justin Zaldivar M.D. CONSULTATION REPORT Page 1 of 1 X X CONSULTATION REPORT
--- NOTE | ~2016-10-04 | EKG ---
PATIENT: HAYES JUDGE UNIT #: [id number] Ventricular Rate: 105 BPM Atrial Rate: 105 BPM P-R Interval: 148 ms QRS Duration: 76 ms Q-T Interval: 342 ms QTC Calculation(Bezet): 452 ms P [place]: 81 degrees Calculated R [place]: 61 degrees Calculated T [place]: 46 degrees Diagnosis Line: Sinus tachycardia Diagnosis Line: Right atrial enlargement Diagnosis Line: Nonspecific T wave abnormality Diagnosis Line: Abnormal ECG Diagnosis Line: When compared with ECG of 04-OCT-2016 02:40, Diagnosis Line: (unconfirmed) Diagnosis Line: No significant change was found Diagnosis Line: Confirmed by ELOISA GUDINO MD ([id number]) on 10/05/2016 Diagnosis Line: 6:07:51 PM INTERPRETING MD: TERESE SALAS
--- NOTE | ~2016-10-04 | HP ---
Unit #: [id number] #: [id number] Patient: HAYES JUDGE [id number] [address] [address] [id number] I MR#: [id number] NAME: HAYES JUDGE ROOM: 301 Age: 66 Sex: F Admission Date: 10/04/2016 : 1950 Attending Physician: Keshav Perla M.D. Primary Care Physician: Maria Esther Saba A.P.R.N. HISTORY AND PHYSICAL CHIEF COMPLAINT Shortness of breath and squeezing chest pain. HISTORY OF PRESENT ILLNESS A 66-year-old female, who has a history of severe emphysema, heterozygous alpha 1 antitrypsin disorder, who has had multiple hospitalizations for COPD. She has had a several day history of shortness of breath, wheezing, some increase in sputum production but she states it is nonpurulent. There has been no fever or hemoptysis. She has had a squeezing chest pain, which seems to worsen with her shortness of breath. She was going to ask for a "magic steroid shot" today but worsened and presented to the hospital and was admitted. PAST MEDICAL HISTORY 1. Severe COPD. 2. History of MRSA. 3. Tracheal bronchitis following recent influenza episode. 4. History of chronic respiratory failure on 2 L. 5. History of coronary artery disease, status post PCI in the past. 6. History of hypertension. 7. Hyperlipidemia. 8. Anxiety/depression. 9. Steroid-induced hyperglycemia, possible underlying diabetes. MEDICATIONS At home, she is on: 1. Advair twice a day. 2. Spiriva once a day. 3. Albuterol as needed which she takes fairly often. 4. She is chronic prednisone 10 mg daily. Other medications include: 1. Celexa. 2. Requip. 3. Lisinopril. 4. Norvasc. 5. Aspirin. 6. Tylenol. 7. Hydrochlorothiazide. 8. Lipitor. ALLERGIES No known medical allergies. Unit #: [id number] #: [id number] Patient: HAYES JUDGE SOCIAL HISTORY She does not currently smoke. She used to smoke in the past. I believe she lives with a smoker, although they try to avoid secondhand smoke. FAMILY HISTORY No definite familial lung disease. REVIEW OF SYSTEMS Primarily as above. No real abdominal pain, melena, hematuria, dysuria, focal weakness, paraesthesias, leg pain, swelling, hemoptysis, fever, chills, weight loss. She is unaware of any exposures, no cleaning solution, david environments, etc. Further review of systems negative. PHYSICAL EXAMINATION VITAL SIGNS: Reveals a patient who is afebrile. Pulse 88, respiratory rate 18, blood pressure 137/93. Five foot tall, 146 pounds. HEENT: Pupils equal, round, and reactive to light. Sclerae anicteric. Head atraumatic. Mucous membranes are moist. She has dentures in place. NECK: Supple. No supraclavicular or cervical adenopathy appreciated. CHEST: Tight expiratory wheeze heard anteriorly. Decreased breath sounds posteriorly. No consolidation or crackles. CARDIAC: Reveals a regular rate and rhythm. No pathologic murmur, rub, or gallop. ABDOMEN: Soft, nontender. No hepatomegaly, rebound. EXTREMITIES: Reveal no clubbing, cyanosis, or edema. No calf tenderness. Mildly delayed capillary blush. SKIN: With no rash, occasional excoriation. NEUROLOGIC: Grossly intact. No focal muscle or sensory deficits. DIAGNOSTIC STUDIES LABORATORY: BUN is 15, creatinine 0.8. BNP is 20. Lactic acid has not been performed. Cardiac enzymes negative. White blood cell count mildly elevated at 13.8, hemoglobin 13.4, platelet count normal. Urinalysis: Not performed. Blood cultures: Not performed. Sputum in the past: MRSA. IMAGING: Chest x-ray: COPD. CARDIOVASCULAR: EKG: Sinus rhythm, nonspecific EKG changes. IMPRESSION 1. Acute exacerbation of chronic obstructive pulmonary disease. 2. Chest pain, atypical, suspect primarily pulmonary in nature but she does have coronary artery disease. 3. Acute on chronic respiratory failure, 2 L at home, now requiring 3 L. 4. Coronary artery disease. 5. Heterozygous alpha 1. 6. History of methicillin-resistant Staphylococcus aureus bronchitis. 7. Possible diabetes. 8. Multiple medical problems listed above. PLAN 1. Admission to the hospital. 2. IV steroids. 3. Cardiology evaluation. 4. I will adjust her antibiotics to oral antibiotics for bronchitis and monitor closely. 5. Her mildly elevated white blood cell count is likely secondary to her chronic prednisone and stress of an acute illness. Unit #: [id number] #: [id number] Patient: HAYES JUDGE. Her blood sugars will be monitored with Accu-Cheks and sliding scale insulin. Dictated by Romana Rivers/cheryl TD: 10/04/2016 12:03 JOB #: [id number] CC: Ayo Campos M.D. HISTORY AND PHYSICAL Page 1 of 1 X Keshav Perla MD X HISTORY AND PHYSICAL
--- NOTE | ~2016-10-04 | DS ---
Unit #: [id number] #: [id number] Patient: HAYES JUDGE [id number] [address] [address] [id number] I MR#: [id number] NAME: HAYES JUDGE ROOM: 301 Age: 66 Sex: F Admission Date: 10/04/2016 : 1950 Discharge Date: 10/06/2016 Attending Physician: Keshav Perla M.D. Primary Care Physician: Maria Esther Saba A.P.R.N. DISCHARGE SUMMARY DISCHARGE DIAGNOSES 1. Acute exacerbation of chronic obstructive pulmonary disease. 2. Chronic respiratory failure. 3. Atypical chest pain, likely pulmonary in nature. 4. Coronary artery disease. 5. History of heterozygous alpha-1 antitrypsin phenotype. 6. "Sleepiness" with unremarkable nocturnal polysomnography in the past. 7. Hypertension. 8. Hyperlipidemia. 9. Anxiety and depression. 10. Steroid-induced hyperglycemia. Possible underlying diabetes. NOTE: Please note that Beat[employer] just went down; therefore, please see chart for details. DISCHARGE MEDICATIONS 1. Same as her home medications except prednisone taper to her 10 mg daily and doxycycline 100 mg b.i.d. 2. Zetia 10 mg a day. 3. Celexa 20 mg a day. 4. Requip 1 mg at bedtime. 5. Advair 500 one puff b.i.d. 6. Spiriva 1 capsule inhaled daily. 7. Zestril 20 mg a day. 8. Norvasc 5 mg a day. 9. Aspirin 81 mg a day. 10. Oretic 12.5 mg daily. 11. Albuterol nebulizer q.i.d. p.r.n. 12. Lipitor 40 mg at bedtime. FOLLOWUP 1. Follow up with Ms. Saba for medical evaluation and evaluation for possible diabetes. 2. Follow up with Dr. Zaldivar as scheduled for coronary artery disease. 3. Follow up with Dr. Perla's nurse practitioner in 2 weeks, arrange nocturnal oximetry on oxygen and then follow up with Dr. Perla as scheduled. DISCHARGE DIET No concentrated sweets diet. ACTIVITY Oxygen 24 hours a day. Unit #: [id number] #: [id number] Patient: HAYES JUDGE DESCRIPTION OF HOSPITALIZATION The patient was admitted to the hospital through the emergency room. Chest x-ray was unremarkable. She was treated for COPD exacerbation and actually did well. She had intense wheezing at first, but that resolved, and on the day of discharge she had minimal wheezing only. She was able to perform all activities of daily living. She had a "squeezing chest pain," most likely related to musculoskeletal issues from her increased work of breathing. However, given her history of coronary artery disease, Dr. Zaldivar was consulted. No additional evaluation was suggested. On the day of discharge she was able to perform all activities of daily living, had no complaints except being "sleepy." In the past nocturnal polysomnography has been unremarkable. Will check nocturnal oximetry on oxygen once stable at home. Overall, she was discharged in improved condition with followup as described above. NOTE: Again, Beat[employer] went down in the middle of this dictation. Dictated by... Romana Rivers/bennett TD: 10/07/2016 11:43 JOB #: [id number] CC: Justin Zaldivar M.D. DISCHARGE SUMMARY Page 1 of 1 X Keshav Perla MD DISCHARGE SUMMARY
--- NOTE | ~2016-10-04 | EKG ---
PATIENT: HAYES JUDGE UNIT #: [id number] Ventricular Rate: 104 BPM Atrial Rate: 104 BPM P-R Interval: 144 ms QRS Duration: 70 ms Q-T Interval: 354 ms QTC Calculation(Bezet): 465 ms P [place]: 78 degrees Calculated R [place]: 41 degrees Calculated T [place]: 36 degrees Diagnosis Line: Sinus tachycardia Diagnosis Line: Nonspecific T wave abnormality Diagnosis Line: Otherwise normal ECG Diagnosis Line: When compared with ECG of 08-AUG-2016 14:38, Diagnosis Line: QT has lengthened Diagnosis Line: Confirmed by ELOISA GUDINO MD ([id number]) on 10/05/2016 Diagnosis Line: 5:58:09 PM INTERPRETING MD: TERESE SALAS
--- NOTE | ~2016-10-04 | CR72 ---
[facility] A Service of [facility] RADIOLOGY TEXT RESULTS PATIENT: HAYES JUDGE LOCATION: [facility] 301-01 : [birth year] UNIT #: [id number] AGE: [address]: Keshav Perla MD SEX: F ORDER DR: [id number] [facility] [address] [facility]. [place], [place] [address] [id number] E MR#: [id number] Acc #: [id number] NAME: HAYES JUDGE : 1950 SEX: F STUDY DATE/TIME: 10/04/2016 2:45 UNIT: [facility] ROOM: STUDY DESCRIPTION: CR Chest Single View Portable Attending Physician: Paris Miller M.D. Ordering Physician: Paris Miller M.D. Primary Care Physician: Maria Esther Saba A.P.R.N. MEDICAL IMAGING REPORT This report is preliminary unless electronic signature is present EXAM Single view chest INDICATION Shortness of air. FINDINGS Single portable AP view of the chest compared to 08/06/2016. Heart and mediastinal contours within normal limits. Lungs are hyperinflated indicating obstructive lung disease. No focal consolidation. No pleural effusion. IMPRESSION No acute cardiopulmonary findings. Dictated by... David Garduno M.D. THIS IS AN ELECTRONICALLY VERIFIED REPORT David Garduno M.D. at 10/04/2016 11:22 PM JUMA/doe TD: 10/04/2016 05:04 JOB #: [id number] MEDICAL IMAGING REPORT Page 1 of 1 COPY
[~2016-10-04 01:59] MED LIST changes: +BACTRIM DS TABL1 TA2 PO; +LIPITOR40 MG PO; +LISINOPRIL20 MG PO
[2016-10-04 03:10] LABS: BASOPHIL# 0.1 X10e3 (0-0.3); BASOPHIL% 0.6 % (0-2.5); DIFF IND NO; EOSINOPHIL# 0.2 X10e3 (0-0.7); EOSINOPHIL% 1.7 % (0.0-7.0); HEMATOCRIT 41.6 % (35.0-45.0); HEMOGLOBIN 13.4 gm/dL (12.0-16.0); LYMPHOCYTE# 3.6 X10e3 (1.0-3.5); LYMPHOCYTE% 26.1 % (17.0-45.0); MEAN CELL VOLUME 95.5 FL (83-96); MEAN CORPUSCULAR HEMOGLOBIN 30.8 PG (28-34); MEAN CORPUSCULAR HGB CONC 32.3 g/dL (30-36); MEAN PLATELET VOLUME 7.9 FL (6.5-11.5); MONOCYTE# 0.7 X10e3 (0-1.0); MONOCYTE% 4.8 % (3.0-12.0); NEUTROPHIL# 9.2 X10e3 (1.5-7.1); NEUTROPHIL% 66.8 % (40-75); PLATELET COUNT 336 X10e3 (140-420); RED BLOOD COUNT 4.36 X10e (3.90-5.30); RED CELL DISTRIBUTION WIDTH 15.8 % (11.0-15.5); WHITE BLOOD COUNT 13.8 X10e3 (4.0-10.5)
[2016-10-04 03:15] LABS: POC - CKMB 2.5 ng/mL (0.0-7.9); POC - TROPONIN <0.05 ng/mL (<=0.05)
[2016-10-04 03:40] LABS: BUN/CREATININE RATIO 18.75; CALCIUM SERUM 9.2 mg/dL (8.4-10.2); CREATININE SERUM 0.8 mg/dL (0.6-1.4); GLOM FILT RATE Estimated 75.8 mL/min (>60); POTASSIUM 3.7 mmol/L (3.5-5.1)
[2016-10-05 06:26] LABS: GLOM FILT RATE Estimated 57.9 mL/min (>60); POTASSIUM 4.5 mmol/L (3.5-5.1)
[2016-10-06] MEDS ORDERED: ZETIA PO (14:06)
[2016-10-06] MEDS ORDERED: DOXYCYCLINE HY100 M3 PO (14:07)
[2016-10-06] MEDS ORDERED: PREDNISONE10 M1 PO (14:08)
== END 2016-10-06 14:39 | disposition home or self-care (01) | DRG 189 ==
LOC: CED 01:59 → CEDOF 04:50 → C3A PCU 04:50 → CED 05:12 → CEDOF 05:12 → C3A PCU 08:42
PROVIDERS: Emergency Medicine
DX: J96.20 Acute and chronic respiratory failure, unspecified whether with hypoxia or hypercapnia (principal); E11.65 Type 2 diabetes mellitus with hyperglycemia; I10 Essential (primary) hypertension; J44.1 Chronic obstructive pulmonary disease with (acute) exacerbation; I25.10 Atherosclerotic heart disease of native coronary artery without angina pectoris; E78.5 Hyperlipidemia, unspecified; F41.8 Other specified anxiety disorders; Z79.82 Long term (current) use of aspirin; Z86.14 Personal history of Methicillin resistant Staphylococcus aureus infection
CPT/HCPCS: 71010; 80048; 82553; 82947; 83735; 83880; 84484; 85025; 93005; 94640; 94760; 99291; J0456; J0696; J1815; J2920; J2930

== ENCOUNTER 2016-12-09 07:34 | Inpatient (IN) | payer MEDICARE, OTHER ==
[~2016-12-09] VITALS: Ht 152.4 cm; Wt 66.8 kg
--- NOTE | ~2016-12-09 | EKG ---
PATIENT: HAYES JUDGE UNIT #: [id number] Ventricular Rate: 124 BPM Atrial Rate: 124 BPM P-R Interval: 132 ms QRS Duration: 68 ms Q-T Interval: 314 ms QTC Calculation(Bezet): 451 ms P [place]: 75 degrees Calculated R [place]: 63 degrees Calculated T [place]: -3 degrees Diagnosis Line: Sinus tachycardia Diagnosis Line: Low voltage QRS Diagnosis Line: T wave abnormality, consider inferior ischemia Diagnosis Line: Abnormal ECG Diagnosis Line: When compared with ECG of 05-OCT-2016 06:56, Diagnosis Line: Inverted T waves have replaced nonspecific T wave Diagnosis Line: abnormality in Inferior leads Diagnosis Line: Nonspecific T wave abnormality, improved in Diagnosis Line: Lateral leads Diagnosis Line: Confirmed by IRVIN MARTINEZ MD ([id number]) on Diagnosis Line: 12/11/2016 8:55:16 AM INTERPRETING MD: MICHELLE SALAS
--- NOTE | ~2016-12-09 | CR72 ---
[facility] A Service of [facility] RADIOLOGY TEXT RESULTS PATIENT: HAYES JUDGE [facility] 564-01 : 48 UNIT #: [id number] AGE: [address]: Keshav Perla MD SEX: F ORDER DR: [id number] [facility] [address] [facility]. [place], [place] [address] [id number] I MR#: [id number] Acc #: [id number] NAME: HAYES JUDGE : 1950 SEX: F STUDY DATE/TIME: 12/09/2016 7:57 UNIT: [facility] ROOM: [facility] STUDY DESCRIPTION: CR Chest Single View Portable Attending Physician: Keshav Perla M.D. Ordering Physician: Aiden Ricci M.D. Primary Care Physician: Maria Esther Saba A.P.R.N. MEDICAL IMAGING REPORT This report is preliminary unless electronic signature is present EXAM Portable chest. INDICATIONS Shortness of air for 3 days. COMPARISON 10/04/2016 FINDINGS A portable view of the chest was obtained. The heart size and vascularity are normal, and the lungs are clear. The bones are unremarkable. IMPRESSION No active disease. Dictated by... Mitesh Varner M.D. THIS IS AN ELECTRONICALLY VERIFIED REPORT Mitesh Varner M.D. at 12/10/2016 9:35 PM WICHO/eboni TD: 12/09/2016 22:35 JOB #: [id number] MEDICAL IMAGING REPORT Page 1 of 1 COPY
--- NOTE | ~2016-12-09 | HP ---
Unit #: [id number] #: [id number] Patient: HAYES JUDGE [id number] [facility]. [place], [place] [address] [id number] I MR#: [id number] NAME: HAYSE JUDGE ROOM: 564 Age: 66 Sex: F Admission Date: 12/10/2016 : 1950 Attending Physician: Keshav Perla M.D. Primary Care Physician: Maria Esther Saba A.P.R.N. HISTORY AND PHYSICAL HISTORY OF PRESENT ILLNESS The patient is a 66-year-old white female followed by Dr. Perla with severe emphysema, alpha-1 antitrypsin disorder, who presents with increasing shortness of breath. She says she had run out of her DuoNeb which had really helped her breathing. She has an appointment tomorrow to see Dr. Perla, get a refill but became more short of breath and presented to the emergency room. There she was noted to have arterial blood gasses which revealed a pH of 7.33, pCO2 of 60, pO2 of 179 on BiPAP 04/18, 50%. She initially received some steroids and mini-neb treatments with improvement but she got up to walk with her supplemental oxygen on and promptly dropped to below 87% and we were called by the emergency room to admit. She denies any chest pain or purulent sputum or hemoptysis. She has had no significant reflux. She has no unusual exposure history. PAST MEDICAL HISTORY Past medical history is significant for emphysema, history of MRSA, chronic hypoxemic hypercarbic respiratory failure maintained on O2 at, I believe, 3 L and history of coronary artery disease, status post PCI, history of hypertension, hyperlipidemia, anxiety and depression, steroid-induced diabetes. HOME MEDICATIONS Celexa, Requip, Advair, lisinopril, albuterol, Spiriva, Norvasc, aspirin, Tylenol. ALLERGIES None known. SOCIAL HISTORY Currently does not smoke, smoked in the past, is not around secondhand smoke, denies alcohol. FAMILY HISTORY No familial lung disease. REVIEW OF SYSTEMS Negative except for above, 10-point system. PHYSICAL EXAMINATION GENERAL: White female, currently in no distress, able to speak in complete sentences. VITAL SIGNS: Blood pressure 152/89. Pulse 20. Respiratory rate 20. Pulse 107. Temperature 98.8. HEENT: Normocephalic and atraumatic. Pupils equal, round and reactive. Unit #: [id number] #: [id number] Patient: HAYES JUDGE Sclerae are nonicteric. Nasal passages patent. Posterior pharynx clear. Dentures present. No obvious thrush. NECK: Supple. Trachea midline. No cervical or supraclavicular lymphadenopathy. LUNGS: Reveal diminished breath sounds, prolonged expiratory phase, mild expiratory wheeze. CARDIAC: Heart sounds distant, regular rate and rhythm, could not appreciate murmur, rub or gallop. ABDOMEN: Nontender, bowel sounds present, no hepatosplenomegaly. EXTREMITIES: Without cyanosis, clubbing or edema. NEUROLOGIC: Awake, alert and oriented x3. Cranial nerves intact. Muscle strength symmetric bilaterally. SKIN: Warm and dry. PSYCHAITRIC: Affect calm. DIAGNOSTIC STUDIES IMAGING: Chest x-ray personally reviewed, hyperinflated, flattened diaphragm, no infiltrate. LABORATORY: Arterial blood gas 7.33, pCO2 is 60, pO2 179 on BiPAP 12/6, 50% oxygen. Chemistry reviewed, glucose 244. Lactic acid 1.1. White blood cell count 12,300 and hematocrit 48.1, platelet count normal. IMPRESSION 1. Acute exacerbation of chronic obstructive pulmonary disease. 2. Acute and chronic respiratory failure. 3. Diabetes mellitus. 4. Hypertension. 5. Hyperlipidemia. 6. Coronary artery disease, status post percutaneous coronary intervention. 7. Alpha-1 antitrypsin deficiency. PLAN Inhaled bronchodilators, parenteral steroids, cover with oral antibiotics, O2. Sliding scale insulin. DVT prophylaxis. Further recommendations pending this. Dictated by Romana Kessler/moses TD: 12/10/2016 17:42 JOB #: [id number] Unit #: [id number] #: [id number] Patient: HAYES JUDGE HISTORY AND PHYSICAL Page 1 of 1 X Alvino Angel MD HISTORY AND PHYSICAL
--- NOTE | ~2016-12-09 | DS ---
Unit #: [id number] #: [id number] Patient: HAYES JUDGE [id number] [address] [address] [id number] I MR#: [id number] NAME: HAYES JUDGE ROOM: 4 Age: 66 Sex: F Admission Date: 12/10/2016 : 1950 Discharge Date: Attending Physician: Keshav Perla M.D. Primary Care Physician: Jorge CamposRKiana DISCHARGE SUMMARY DISCHARGE DIAGNOSES 1. Acute exacerbation of chronic obstructive pulmonary disease. 2. Chronic respiratory failure. 3. Hyperglycemia, elevated A1c consistent with diabetes, aggravated by steroids. 4. Anxiety/depression. 5. Restless leg syndrome. 6. Hypertension. 7. Coronary artery disease. 8. Heterozygous alpha-I antitrypsin phenotype. 9. Hyperlipidemia. DISCHARGE MEDICATIONS 1. Albuterol q.i.d. and p.r.n. 2. Advair 550, one puff twice a day. 3. Prednisone 40 mg daily x5 days. 4. Tylenol p.r.n. 5. Spiriva, one capsule inhaled daily. 6. Celexa 20 mg at bedtime. 7. Zetia 10 mg at bedtime. 8. Requip 1 mg at bedtime. 9. Norvasc 5 mg a day. 10. Hydrochlorothiazide 25 mg a day. 11. Zestril 20 mg a day. 12. Aspirin 81 mg a day. 13. Doxycycline 100 mg twice a day x5 days. 14. Regular insulin sliding scale, 5 units for blood sugar greater than 200, ten units blood sugar greater than 250, 15 units blood sugar greater than 300. FOLLOWUP Follow up with Ms. Saba in one to two weeks. I have stressed compliance with strict followup. Dr. Perla's nurse practitioner in two weeks, Dr. Perla as scheduled, Dr. Zaldivar as scheduled. CONSULTS Hospice. DIET No concentrated sweet. She will undergo education by quick service technician. ACTIVITY Oxygen 24 hours a day. Unit #: [id number] #: [id number] Patient: HAYES JUDGE DESCRIPTION OF HOSPITALIZATION The patient was admitted through the emergency room by Dr. Angel with shortness of breath and acute exacerbation of COPD. She was treated with steroids, nebulized bronchodilators. She still had pretty intense wheezing. Antibiotics were added. She also complained of inability to expectorate sputum and percussive therapy was used and she felt relief with that treatment. She declined any type of evaluation to obtain a vest at home. She was very anxious and upset and had multiple questions about end of life issues. We had a very lengthy discussion on multiple occasions regarding this. She desired hospice and they discussed with her. After that discussion, she seemed to be much more peaceful and relieved. She improved greatly throughout the remainder of her hospitalization. Repeat of her electrolytes revealed a blood sugar of 509. Accu-Chek at that time was 419 and she received insulin. Of note, in the past I have discussed with her the likelihood of diabetes. She is reluctant to admit that she had diabetes. Hemoglobin A1c has been elevated for many years quite frankly. Last hemoglobin A1c was July 28 and it was 7.7. She tells me her blood sugars are often times 250 at home. There is mention that she had been prescribed insulin in the past but she was reluctant to use it. A lengthy discussion was had with the patient regarding need for strict dietary restraints as well as sliding scale insulin and she agrees. She will be educated on both. She states that her is a nurse and she is very comfortable going home on sliding scale insulin. Please note that her TSH was also somewhat low in July at 0.28 and I have suggested evaluation for this as an outpatient. Strict followup with her primary care provider has been discussed. Overall, she was discharged in improved condition. Dictated by... Keshav Perla M.D. RENNY/bahman TD: 12/14/2016 10:41 JOB #: [id number] DISCHARGE SUMMARY Page 1 of 1 X Keshav Perla MD X DISCHARGE SUMMARY
[~2016-12-09 07:34] MED LIST changes: +PREDNISONE10 M1 PO; +ZETIA PO
[2016-12-09 08:34] LABS: BASOPHIL# 0.1 X10e3 (0-0.3); BASOPHIL% 0.8 % (0-2.5); EOSINOPHIL# 0.3 X10e3 (0-0.7); EOSINOPHIL% 2.6 % (0.0-7.0); HEMATOCRIT 48.1 % (35.0-45.0); LYMPHOCYTE# 3.4 X10e3 (1.0-3.5); LYMPHOCYTE% 27.2 % (17.0-45.0); MEAN CELL VOLUME 92.3 FL (83-96); MEAN CORPUSCULAR HEMOGLOBIN 30.6 PG (28-34); MEAN CORPUSCULAR HGB CONC 33.2 g/dL (30-36); MEAN PLATELET VOLUME 8.5 FL (6.5-11.5); MONOCYTE# 0.7 X10e3 (0-1.0); MONOCYTE% 5.8 % (3.0-12.0); NEUTROPHIL# 7.8 X10e3 (1.5-7.1); NEUTROPHIL% 63.6 % (40-75); PLATELET COUNT 318 X10e3 (140-420); RED BLOOD COUNT 5.21 X10e (3.90-5.30); RED CELL DISTRIBUTION WIDTH 14.1 % (11.0-15.5); WHITE BLOOD COUNT 12.3 X10e3 (4.0-10.5)
[2016-12-09 08:37] LABS: DIFF IND NO
[2016-12-09 09:03] LABS: BILIRUBIN, DIRECT 0.1 mg/dL (0.0-0.2); BILIRUBIN,INDIRECT 0.6 mg/dL (0.0-0.9); BILIRUBIN,TOTAL 0.7 mg/dL (0.2-2.0); BUN/CREATININE RATIO 14.54; CALCIUM SERUM 9.4 mg/dL (8.4-10.2); CREATININE SERUM 1.1 mg/dL (0.6-1.4); GLOM FILT RATE Estimated 51.6 mL/min (>60); PROTEIN TOTAL SERUM 7.1 g/dL (6.0-8.3)
[2016-12-09 09:12] LABS: POC - TROPONIN <0.05 ng/mL (<=0.05)
[2016-12-09 10:13] LABS: POC - TROPONIN <0.05 ng/mL (<=0.05)
[2016-12-09 10:36] LABS: ARTERIAL BLOOD GAS CARBOXY HB 1.4 %sat (0.0-9.0); ARTERIAL BLOOD GAS HCO3 32.2 mmol/L; ARTERIAL BLOOD GAS MET HB 1.2 %sat (0.0-2.0); ARTERIAL BLOOD GAS pH 7.338 (7.350-7.450)
[2016-12-09 10:38] LABS: ARTERIAL BLOOD GAS ALLEN TEST NORMAL; ARTERIAL BLOOD GAS ART SITE RIGHT RADIAL; ARTERIAL DRAW? YES
[2016-12-14 06:26] LABS: BUN/CREATININE RATIO 37.27; CALCIUM SERUM 9.9 mg/dL (8.4-10.2); CREATININE SERUM 1.1 mg/dL (0.6-1.4); GLOM FILT RATE Estimated 51.6 mL/min (>60); MAGNESIUM 2.3 mg/dL (1.6-3.0); PHOSPHOROUS 3.3 mg/dL (2.5-4.6); POTASSIUM 4.6 mmol/L (3.5-5.1)
[2016-12-14] MEDS ORDERED: DELTASONE20 MG PO (12:47)
[2016-12-14] MEDS ORDERED: NOVOLOG100 UNITS/ SUBQ (12:48)
[2016-12-14] MEDS ORDERED: DOXYCYCLINE HY100 M3 PO (12:49)
== END 2016-12-14 13:40 | disposition home or self-care (01) | DRG 189 ==
LOC: CED 07:34 → CEDOF 13:20 → C5C 14:01 → CEDOF 14:01 → CED 14:01 → C5C 21:49 → CEDOF 21:49 → C5C 12-10 15:00
PROVIDERS: Emergency Medicine; Internal Medicine
DX: J96.20 Acute and chronic respiratory failure, unspecified whether with hypoxia or hypercapnia (principal); E11.65 Type 2 diabetes mellitus with hyperglycemia; E88.01 Alpha-1-antitrypsin deficiency; J44.1 Chronic obstructive pulmonary disease with (acute) exacerbation; F41.9 Anxiety disorder, unspecified; F32.9 Major depressive disorder, single episode, unspecified; G25.81 Restless legs syndrome; I10 Essential (primary) hypertension; I25.10 Atherosclerotic heart disease of native coronary artery without angina pectoris; Z51.5 Encounter for palliative care; Z86.14 Personal history of Methicillin resistant Staphylococcus aureus infection; Z87.891 Personal history of nicotine dependence
CPT/HCPCS: 36600; 71010; 80048; 80076; 82553; 82803; 82947; 83605; 83735; 83880; 84100; 84484; 85025; 87040; 93005; 94640; 94660; 94667; 94668; 94760; 96374; 99291; J1650; J1815; J2920; J2930

== ENCOUNTER 2017-01-05 01:43 | Inpatient (IN) | payer MEDICARE, OTHER ==
[~2017-01-05] VITALS: Ht 157.5 cm; Wt 66.8 kg
--- NOTE | ~2017-01-05 | CO ---
Unit #: [id number] #: [id number] Patient: HAYES JUDGE [id number] [address] [address] [id number] I MR#: [id number] NAME: HAYES JUDGE ROOM: 215 Age: 66 Sex: F Admission Date: 01/05/2017 : 1950 Attending Physician: Mathieu Barkley Jr., M.D. Primary Care Physician: Maria Esther Saba A.P.R.N. Consultation Date: 01/05/2017 CONSULTATION REPORT REASON FOR CONSULT Hyperglycemia, secondary to the steroids. HISTORY OF PRESENT ILLNESS This is a 66-year-old female who has chronic obstructive pulmonary disease, chronic respiratory failure, type 2 diabetes mellitus on NovoLog at home per sliding scale, who has been admitted with the COPD exacerbation. Been started on IV Solu-Medrol. Her blood sugars have been running 300-400 mg/dL. I have been asked to see the patient for further management. MEDICAL HISTORY 1. Severe emphysema. 2. Chronic respiratory failure. 3. Type 2 diabetes mellitus. 4. Restless leg syndrome. 5. Coronary artery disease. 6. Hypertension. 7. Hyperlipidemia. SOCIAL HISTORY Quit tobacco a few years ago. No alcohol. FAMILY HISTORY Noncontributory. ALLERGIES None. HOME MEDICATIONS 1. Advair. 2. Spiriva. 3. Albuterol. 4. Oxygen. 5. NovoLog sliding scale. 6. Aspirin. 7. Zetia. 8. Prednisone. 9. Celexa. 10. Requip. 11. Lisinopril. REVIEW OF SYSTEMS Unit #: [id number] #: [id number] Patient: HAYES JUDGE A 12-point review of systems is completed and is remarkable for the blood sugars and the shortness of air. No chest pain. No urgency, frequency, dysuria. The rest of the review of systems are unremarkable. PHYSICAL EXAMINATION GENERAL: She is lying comfortably in no acute distress. VITAL SIGNS: Temperature 97.6, pulse 100, respiratory rate 20, blood pressure 166/112. HEENT: EOMI. Pupils equally reactive to light. NECK: Supple. No thyromegaly noted. CHEST: Good air entry. CARDIOVASCULAR: Regular rhythm. S1, S2. No murmurs. ABDOMEN: Soft, nontender. Bowel sounds positive. EXTREMITIES: No edema or ulcers are noted. LUNGS: Decreased air entry. DIAGNOSTIC STUDIES LABORATORY: A1c is 7.7 in July 2016. Creatinine is 1.1, sodium 135, potassium 4.2. ASSESSMENT 1. Type 2 diabetes mellitus with acute hyperglycemia secondary to the IV steroids. 2. Acute on chronic respiratory failure. PLAN Will start patient on NPH insulin 15 units before each Solu-Medrol dose. Add NovoLog 5 units each meal. Cover with supplemental insulin with sliding scale as needed. Accu-Cheks a.c. and at bedtime. Continue carbohydrate meals. Thanks again for consultation. Dictated by... Romana Abreu/cheryl TD: 01/07/2017 08:56 JOB #: [id number] CONSULTATION REPORT Page 1 of 1 X Mynor Cole MD X CONSULTATION REPORT
--- NOTE | ~2017-01-05 | DS ---
Unit #: [id number] #: [id number] Patient: HAYES JUDGE [id number] [address] [address] [id number] I MR#: [id number] NAME: HAYES JUDGE ROOM: [facility] Age: 66 Sex: F Admission Date: 01/05/2017 : 1950 Discharge Date: 01/10/2017 Attending Physician: Mathieu Barkley Jr., M.D. Primary Care Physician: Maria Esther Saba A.P.R.N. DISCHARGE SUMMARY DISCHARGE DIAGNOSES 1. Severe emphysema and exacerbation. 2. Acute bronchitis. 3. Acute and chronic respiratory failure. 4. Heterozygous Alpha I antitrypsin phenotype. 5. Diabetes. 6. Anxiety/depression. 7. Restless leg syndrome. 8. Hypertension. 9. Coronary artery disease. 10. Hyperlipidemia. DISCHARGE MEDICATIONS 1. Albuterol two puffs every four hours as needed or via nebulizer every four hours as needed 2. Advair 500/50 one inhalation b.i.d. 3. Prednisone 40 mg for four days decrease by 10 mg every four days until 10 mg daily, continue 10 mg daily 4. Spiriva HandiHaler one inhalation daily 5. Celexa 20 mg q.h.s. 6. Zetia 10 mg daily 7. Requip 1 mg q.h.s. 8. Lisinopril 20 mg daily 9. Insulin per Dr. Cole 10. Aspirin 81 mg daily 11. Doxycycline 100 mg b.i.d. x3 days 12. O2 at same level FOLLOWUP Follow up with Dr. Perla in two weeks. HOSPITAL COURSE Kymwu-xoriu-lszj-old white female, with a history of severe COPD and chronic respiratory failure, admitted with increasing shortness of breath. Chest x-ray showed no acute infiltrate, mass, or congestion. Blood sugars were elevated at 392. Cardiac enzymes negative. CBC unremarkable. No eosinophilia noted. EKG showed sinus rhythm, nonspecific ST-T wave changes. She was admitted with acute exacerbation of COPD, and acute and chronic respiratory failure. She was treated with inhaled bronchodilators, IV Solu-Medrol, and placed on oral antibiotics in the form of doxycycline. She was placed on sliding scale insulin and followed by Dr. Cole for hyperglycemia worsened by steroids. She had slow but gradual improvement. Her steroids were weaned with that her insulin doses were adjusted per Dr. Cole. She is now improved significantly and has a mild expiratory Unit #: [id number] #: [id number] Patient: HAYES JUDGE wheeze but will be discharged home on the above mentioned medications to follow up with her family physician, Dr. Perla and Dr. Cole as needed. Dictated by... Romana Kessler/breezy TD: 01/11/2017 07:30 JOB #: [id number] CC: Keshav Perla M.D. DISCHARGE SUMMARY Page 1 of 1 X Alvino Angel MD X DISCHARGE SUMMARY
--- NOTE | ~2017-01-05 | HP ---
Unit #: [id number] #: [id number] Patient: HAYES JUDGE [id number] [address] [address] [id number] I MR#: [id number] NAME: HAYES JUDGE ROOM: 215 Age: 66 Sex: F Admission Date: 01/05/2017 : 1950 Attending Physician: Mathieu Barkley Jr., M.D. Primary Care Physician: Maria Esther Saba A.P.R.N. HISTORY AND PHYSICAL CHIEF COMPLAINT Shortness of breath, wheezing. HISTORY OF PRESENT ILLNESS The patient is a 66-year-old female with a known history of chronic obstructive pulmonary disease and chronic respiratory failure, who actually was admitted and discharged in November of this year. She apparently underwent a steroid taper. She is on chronic prednisone at 10 mg a day, but ran out and was off prednisone for approximately 5 days. She restarted her prednisone at 20 mg a day 4 days ago. She then had increased wheezing, chest congestion and shortness of breath today and yesterday. She presented to the emergency room, where she was admitted to the hospital. She said she had some sputum production at home, but none now. She denies chest pain, hemoptysis or fever. PAST MEDICAL HISTORY 1. Severe emphysema. 2. Heterozygous alpha 1 antitrypsin phenotype. 3. Chronic respiratory failure. 4. Diabetes. 5. Anxiety/depression. 6. Restless leg syndrome. 7. Hypertension. 8. Coronary artery disease. 9. Hyperlipidemia. SOCIAL HISTORY She quit smoking a few years ago. Her family does smoke, but generally outside only. FAMILY HISTORY No familial lung disease. She has been counseled to notify all family members of her heterozygous state. ALLERGIES No known drug allergies. HOME MEDICATIONS 1. Advair b.i.d. 2. Spiriva daily. 3. Albuterol p.r.n. 4. Oxygen 24 hours daily. Other medications include Unit #: [id number] #: [id number] Patient: HAYES JUDGE 1. Aspirin. 2. Zetia. 3. Prednisone 10 mg daily. 4. She is on a sliding scale insulin at home. 5. Celexa. 6. Requip. 7. Lisinopril. REVIEW OF SYSTEMS She denies any exposures. No fever, chills, chest pain, palpitations, abdominal pain, melena, hematochezia, hematuria, dysuria, focal weakness, paresthesias, leg pain, swelling. Further review of systems negative. PHYSICAL EXAMINATION GENERAL: The patient is in no acute distress on 2 liters oxygen. VITALS: Afebrile, pulse 100, respiratory rate 18, blood pressure 161/99, 5'2", 147 pounds. HEENT: Pupils equal, round and reactive to light. Sclerae anicteric. Head atraumatic. NECK: Supple. No supraclavicular or cervical adenopathy appreciated. CHEST: Some scattered expiratory wheeze. Scattered rhonchi. No stridor. HEART: Regular rate and rhythm. No pathologic murmur, rub or gallop. ABDOMEN: Soft and nontender. No hepatomegaly, rebound. EXTREMITIES: No clubbing, cyanosis or edema. No calf tenderness. SKIN: A few bruises in nondiagnostic pattern. No rash. NEUROLOGIC: Grossly intact. No focal muscle or sensory deficits. DIAGNOSTIC STUDIES IMAGING: Chest x-ray no acute disease. LABORATORY: Blood sugars 392. This was on presentation to the emergency room. BUN 24, creatinine 1.1, BNP 42, hemoglobin A1c in 07/2016 7.7. INR negative. Cardiac enzymes negative. CBC normal. No eosinophilia. CARDIOVASCULAR: EKG sinus rhythm. Occasional PVC. Some nonspecific T wave changes. ASSESSMENT 1. Acute exacerbation of chronic obstructive pulmonary disease. 2. Chronic respiratory failure. 3. Diabetes with poor control, she tells me that her blood sugars can get up into the 300s at home, as seen on her initial labs. 4. Hypertension. 5. Coronary artery disease. 6. Heterozygous alpha 1. 7. Hyperlipidemia. PLAN Admission to the hospital. IV medications. Antibiotics for bronchitis. Please note she has had MRSA sensitive to doxycycline in the past. Sliding scale insulin. I will ask Dr. Cole of endocrinology to see the patient, not only for help with inpatient blood sugar control, but outpatient management. I think she is very poorly controlled. She is having difficulty getting in to see her nurse practitioner. Unit #: [id number] #: [id number] Patient: HAYES JUDGE Dictated by Keshav Perla M.D. Candi TD: 01/05/2017 12:29 JOB #: [id number] CC: Ayo Campos M.D. Paul J. Rogers, M.D. HISTORY AND PHYSICAL Page 1 of 1 X Keshav Perla MD X HISTORY AND PHYSICAL
--- NOTE | ~2017-01-05 | EKG ---
PATIENT: HAYES JUDGE UNIT #: [id number] Ventricular Rate: 100 BPM Atrial Rate: 100 BPM P-R Interval: 140 ms QRS Duration: 82 ms Q-T Interval: 358 ms QTC Calculation(Bezet): 461 ms P [place]: 74 degrees Calculated R [place]: 30 degrees Calculated T [place]: -102 degrees Diagnosis Line: Sinus rhythm with occasional Premature ventricular Diagnosis Line: complexes Diagnosis Line: T wave abnormality, consider inferolateral Diagnosis Line: ischemia Diagnosis Line: Abnormal ECG Diagnosis Line: No previous ECGs available Diagnosis Line: Confirmed by LOLITA CAMPOS MD ([id number]) on 01/05/2017 Diagnosis Line: 5:13:29 PM INTERPRETING MD: ANDRES SALAS
--- NOTE | ~2017-01-05 | CR72 ---
[facility] A Service of [facility] RADIOLOGY TEXT RESULTS PATIENT: HAYES JUDGE LOCATION: [facility] : [birth year] UNIT #: [id number] AGE: [address]: Mathieu Barkley MD SEX: F ORDER DR: [id number] [facility] [address] [place], [place] [address] [id number] I MR#: [id number] Acc #: [id number] NAME: HAYES JUDGE : 1950 SEX: F STUDY DATE/TIME: 01/05/2017 3:14 UNIT: [facility] ROOM: [facility] STUDY DESCRIPTION: CR Chest Single View Portable Attending Physician: Mathieu Barkley Jr., M.D. Ordering Physician: Franklyn Mina D.O. Primary Care Physician: Maria Esther Saba A.P.R.N. MEDICAL IMAGING REPORT This report is preliminary unless electronic signature is present EXAM Chest x-ray 01/05/2017 HISTORY 66-year-old female in the ED complaining of new onset shortness of air today. TECHNIQUE AP portable chest x-ray. FINDINGS The examination shows pulmonary emphysema, best demonstrated on previous chest CT 06/10/2015. The lungs are clear. No visible pulmonary infiltrate, pneumothorax or pleural effusion. Heart size is normal. No change since 12/09/2016. IMPRESSION 1. No active disease. 2. Pulmonary emphysema. Lungs clear. 3. No change since 12/09/2016. Dictated by... Nahum Almonte M.D. THIS IS AN ELECTRONICALLY VERIFIED REPORT Nahum Almonte M.D. at 01/08/2017 11:07 PM LOVEW/dhaval TD: 01/05/2017 13:58 JOB #: [id number] [facility] A Service of [facility] RADIOLOGY TEXT RESULTS PATIENT: HAYES JUDGE LOCATION: [facility] : 46 UNIT #: [id number] AGE: [address]: Mathieu Barkley MD SEX: F ORDER DR: MEDICAL IMAGING REPORT Page 1 of 1 COPY
[~2017-01-05 01:43] MED LIST changes: +NOVOLOG100 UNITS/ SUBQ
[2017-01-05 03:35] LABS: POC - CKMB 4.4 ng/mL (0.0-7.9); POC - TROPONIN <0.05 ng/mL (<=0.05)
[2017-01-05 03:54] LABS: BASOPHIL% 0.2 % (0-2.5); EOSINOPHIL% 0.2 % (0.0-7.0); LYMPHOCYTE# 0.6 X10e3 (1.0-3.5); LYMPHOCYTE% 6.9 % (17.0-45.0); MEAN CELL VOLUME 92.5 FL (83-96); MEAN CORPUSCULAR HEMOGLOBIN 30.8 PG (28-34); MEAN CORPUSCULAR HGB CONC 33.3 g/dL (30-36); MONOCYTE# 0.2 X10e3 (0-1.0); MONOCYTE% 2.3 % (3.0-12.0); NEUTROPHIL# 7.3 X10e3 (1.5-7.1); NEUTROPHIL% 90.4 % (40-75); PLATELET COUNT 211 X10e3 (140-420); RED BLOOD COUNT 4.55 X10e (3.90-5.30); RED CELL DISTRIBUTION WIDTH 15.3 % (11.0-15.5)
[2017-01-05 03:56] LABS: DIFF IND NO
[2017-01-05 04:08] LABS: INR 0.9; PARTIAL THROMBOPLASTIN TIME 20.6 SECONDS (23.5-31.3)
[2017-01-05 04:20] LABS: ALBUMIN SERUM 3.4 g/dL (3.5-5.0); BILIRUBIN, DIRECT 0.1 mg/dL (0.0-0.2); BILIRUBIN,INDIRECT 0.4 mg/dL (0.0-0.9); BILIRUBIN,TOTAL 0.5 mg/dL (0.2-2.0); BUN/CREATININE RATIO 21.81; CREATININE SERUM 1.1 mg/dL (0.6-1.4); GLOM FILT RATE Estimated 51.6 mL/min (>60); POTASSIUM 4.2 mmol/L (3.5-5.1); PROTEIN TOTAL SERUM 6.2 g/dL (6.0-8.3)
[2017-01-05 05:43] LABS: POC - CKMB 2.9 ng/mL (0.0-7.9); POC - TROPONIN <0.05 ng/mL (<=0.05)
[2017-01-05] MEDS ORDERED: ALBUTEROL 0.5ML INH (05:43)
[2017-01-07 05:48] LABS: BUN/CREATININE RATIO 35.55; CREATININE SERUM 0.9 mg/dL (0.6-1.4); GLOM FILT RATE Estimated 65.7 mL/min (>60); POTASSIUM 4.3 mmol/L (3.5-5.1)
[2017-01-10] MEDS ORDERED: DOXYCYCLINE HY100 M3 PO (12:48)
[2017-01-10] MEDS ORDERED: NOVOLOG100 U/ML INJ (12:48)
[2017-01-10] MEDS ORDERED: PREDNISONE10 MG PO (12:50)
== END 2017-01-10 13:57 | disposition home or self-care (01) | DRG 190 ==
LOC: CED 01:43 → C2A 05:55 → CEDOF 05:55 → CED 06:01 → C2A 10:31 → CEDOF 10:31 → C2A 01-10 13:57
PROVIDERS: Emergency Medicine; Internal Medicine
DX: J44.0 Chronic obstructive pulmonary disease with (acute) lower respiratory infection (principal); J96.20 Acute and chronic respiratory failure, unspecified whether with hypoxia or hypercapnia; E88.01 Alpha-1-antitrypsin deficiency; J44.1 Chronic obstructive pulmonary disease with (acute) exacerbation; E11.65 Type 2 diabetes mellitus with hyperglycemia; T38.0X5A Adverse effect of glucocorticoids and synthetic analogues, initial encounter; F41.9 Anxiety disorder, unspecified; F32.9 Major depressive disorder, single episode, unspecified; G25.81 Restless legs syndrome; I10 Essential (primary) hypertension; I25.10 Atherosclerotic heart disease of native coronary artery without angina pectoris; E78.5 Hyperlipidemia, unspecified; Z79.82 Long term (current) use of aspirin; Z79.52 Long term (current) use of systemic steroids; Z87.891 Personal history of nicotine dependence; Z99.81 Dependence on supplemental oxygen; Z79.4 Long term (current) use of insulin
CPT/HCPCS: 36415; 71010; 80048; 80076; 82553; 82947; 83880; 84484; 85025; 85610; 85730; 93005; 94640; 94664; 94760; 96374; 97110; 97116; 97162; 97165; 97530; 99285; G8978-GP; G8979-GP; G8980-GP; G8987-GO; G8988-GO; G8989-GO; J1815; J2920; J2930